=== PATIENT | female | born 1950 | race Caucasian/White ===

== ENCOUNTER 2017-05-28 08:26 | Inpatient (IN) ==
--- OUTSIDE RECORDS SUMMARY | 2017-05-28 08:53 | External Medical Summary | Summary of Care ---
:1950 Author Name Mike Ha M.D. Address [address], [place] [id number] Care Team Providers Name Role Phone Leidy Driscoll M.D. Unavailable Unavailable Outside, Physician Primary Care Provider Unavailable Functional Status Functional Status Health Issues Name Dates Details Functional status health issues are not documented Status: Cognitive Status Health Issues Name Dates Details Cognitive status health issues are not documented Status: Problems Name Dates Details Dizziness (780.4, R42) Status: Active Hearing loss (389.9, H91.90) Status: Active Sensorineural hearing loss (389.10, H90.5) Status: Active Disequilibrium (780.4, R42) Status: Active Imbalance (781.2, R26.89) Status: Active Medications Name Dates Details Meclizine HCl - 25 MG Oral Tablet Refills: 0 Hever Driscoll M.D. Started 18-Dec-2014 ActiveVenlafaxine HCl - 25 MG Oral Tablet Refills: 0 Hever Driscoll M.D. Started 18-Dec-2014 ActiveClonazePAM 1 MG Oral Tablet Refills: 0 Hever Driscoll M.D. Started 18-Dec-2014 Active Allergies and Adverse Reactions Name Dates Details No Known Drug Allergies Status: Active Procedures Procedure Dates Details History of Tonsillectomy History of Hysterectomy ERYTHROCYTE SED RATE 7800 Ordered:18-Dec-2014 RPR 2005 Ordered:18-Dec-2014 ANCA Panel [id number] Ordered:18-Dec-2014 Immunization Name Dates Details Immunizations not documented Social History Name Dates Details Smoking StatusFormer smoker Vital Signs Date Test Result Details 18-Dec-2014 09:44 BP Systolic 148 mm[Hg] Status: BP Diastolic 87 mm[Hg] Status: Heart Rate 83 /min Status: Results Date Description Value Details Results not documented Plan of Care Planned Observations Name Dates Details Planned Goals not documented Goal Planned Encounters Appointment; Provider: Mike Ha On 10:15 Appointment; Provider: Mario Myers On 05-Jun-2009 11:30 Instructions Instructions not documented Encounters Appointment; Mike Ha On 18-Dec-2014 Encounter Diagnosis: Problem not documented 09:15
--- OUTSIDE RECORDS SUMMARY | 2017-05-28 08:53 | External Medical Summary | Continuity of Care Document ---
:1950 Author Organization [facility] Care Team Providers Name Role Phone WILLIAM URBAN Admitting Physician WILLIAM URBAN Attending Physician Hospital Admission Diagnosis Code Admission Diagnosis Date OTHER SPECIFIED NONTOXIC GOITER Social History Element Code Description Smoking Start Date End Date Description Status Code System Smoking Status [id number] Never smoker SNOMED-CT Problems Code Code System Problem Name Start Date End Date Status WEAKNESS 02/05/2014 Active 322258465 SNOMED-CT Transient cerebral Unknown Active ischemia 36831799 SNOMED-CT Hypertensive disorder Unknown Active 097451697 SNOMED-CT Vertigo Unknown Active 156162766 SNOMED-CT Dizziness Unknown Active 36090570 SNOMED-CT Dysphagia Unknown Active 724145912 SNOMED-CT Mitral valve prolapse Unknown Active 84419402 SNOMED-CT Hyperlipidemia Unknown Active Medications RxNorm Medication Dose Route Instructions Indications Start End Status Date Date Atenolol 25 MG 25 Oral orally every Active Oral Tablet milligram day 784905 Escitalopram 10 Oral orally every Active 10 MG Oral milligram day Tablet Lorazepam 1 MG 1 milligram Oral orally 3 times Active Oral Tablet per day 568773 venlafaxine 75 75 Oral orally 3 times Active MG Oral Tablet milligram per day Allergies No Known Allergies Results Radiology Results Order: USTHYRD US ThyroidExam Completion Date :10/01/2015 14:58INDICATION: enlarged thyroid COMPARISON: none.US Thyroid: Each thyroid lobe measures approximately 5-5.5 cm long.Irregular echogenicity suggests thyroiditis. This gives the appearance ofmultiple 5-20 mm nodules. The appearance does not suggest cancer.IMPRESSION: Mild goiter and probable thyroiditis.Released By HANANE CAO MDDate: 10/01/2015 15:44 Vital Signs No data in the system Plan of Care No data in the system Procedures No data in the system Encounters Date Code Diagnosis Status (ICD10) - E048 OTHER SPECIFIED NONTOXIC GOITER Active Immunizations Vaccine Code Code System Vaccine Name Date Status 88 CVX influenza 05/03/2013 Completed virus vaccine, NOS Functional Status No data in the system Hospital Discharge Instructions No data in the system
--- OUTSIDE RECORDS SUMMARY | 2017-05-28 08:53 | External Medical Summary | Continuity of Care Document ---
:1950 Author Organization [facility] Care Team Providers Name Role Phone LEONILA WATTERS Admitting Physician LEONILA WATTERS Attending Physician Hospital Admission Diagnosis No data in the System Social History Element Code Description Smoking Start Date End Date Description Status Code System Smoking Status 548812519 Never smoker SNOMED-CT Problems Code Code System Problem Name Start Date End Date Status WEAKNESS 02/05/2014 Active 647935222 SNOMED-CT Transient cerebral Unknown Active ischemia 06639835 SNOMED-CT Hypertensive disorder Unknown Active 459586335 SNOMED-CT Vertigo Unknown Active 263393575 SNOMED-CT Dizziness Unknown Active 37567074 SNOMED-CT Dysphagia Unknown Active 747755197 SNOMED-CT Mitral valve prolapse Unknown Active 72651011 SNOMED-CT Hyperlipidemia Unknown Active Medications RxNorm Medication Dose Route Instructions Indications Start End Status Date Date Atenolol 25 MG 25 Oral orally every Active Oral Tablet milligram day 979063 Escitalopram 10 Oral orally every Active 10 MG Oral milligram day Tablet Lorazepam 1 MG 1 milligram Oral orally 3 times Active Oral Tablet per day 326167 venlafaxine 75 75 Oral orally 3 times Active MG Oral Tablet milligram per day Allergies No Known Allergies Results Laboratory Results Order: Urinalysis With Microscopic ExamLegend: D=Delta, H=High, L=Low, HH=Critical High, LL=Critical Low, AA= Critical Alpha-Numeric, C=Corrected, A=Abnormal LOINC Test Result Flag Range Units Date 57786 Color Ur Light yellow 6 14:00 66783-9 Clarity Clear Ur 6 14:00 2966-0 Sp Gr <=1.005 1.005-1.030 24h Ur 6 14:00 2756-5 pH Ur 6.0 5.0-7.0 6 14:00 19529-2 Large * NEGATIVE Leukocyte esterase 6 14:00 Ur-aCnc 51707-8 Nitrite Negative NEGATIVE Ur Ql Strip.auto 6 14:00 26337-6 Prot Negative NEGATIVE Tiss-mCnt 6 14:00 2349-9 Glucose Negative NEGATIVE Ur Ql 6 14:00 69280-3 MEK Negative NEGATIVE Ur-mCnc 6 14:00 1977-8 Bilirub Negative NEGATIVE Ur Ql 6 14:00 933-2 Bld Prod Negative NEGATIVE Typ BPU 6 14:00 45612-0 0.2 <=1.0 Urobilinogen Ur Ql 6 14:00 1WBC_UM 10-15 * 0-5 /HPF 6 14:00 5787-7 1Epi 5-10 * 0-2 /HPF Cells #/area UrnS 6 14:00 HPF 64019-6 Few /HPF 1Bacteria UrnS Ql 6 14:00 Micro 71044-9 1C trach Y UrnS Ql Cult 6 14:00 Performing [facility] Footnotes[facility] [id number] - [address] [place], [place] [address]PUL DANISH YOST Vital Signs No data in the system Plan of Care No data in the system Procedures No data in the system Encounters No data in the system Immunizations Vaccine Code Code System Vaccine Name Date Status 88 CVX influenza 05/03/2013 Completed virus vaccine, NOS Functional Status No data in the system Hospital Discharge Instructions No data in the system
--- OUTSIDE RECORDS SUMMARY | 2017-05-28 08:53 | External Medical Summary | Continuity of Care Document ---
:1950 Author Organization [facility] Care Team Providers Name Role Phone LEONILA WATTERS Admitting Physician LEONILA WATTERS Attending Physician Hospital Admission Diagnosis Code Admission Diagnosis Date [id number] Increased frequency of urination Social History Element Code Description Smoking Start Date End Date Description Status Code System Smoking Status 765206294 Never smoker SNOMED-CT Problems Code Code System Problem Name Start Date End Date Status WEAKNESS 02/05/2014 Active 998995861 SNOMED-CT Transient cerebral Unknown Active ischemia 28347149 SNOMED-CT Hypertensive disorder Unknown Active 574543090 SNOMED-CT Vertigo Unknown Active 944886942 SNOMED-CT Dizziness Unknown Active 23082004 SNOMED-CT Dysphagia Unknown Active 882823998 SNOMED-CT Mitral valve prolapse Unknown Active 78826750 SNOMED-CT Hyperlipidemia Unknown Active Medications RxNorm Medication Dose Route Instructions Indications Start End Status Date Date Atenolol 25 MG 25 Oral orally every Active Oral Tablet milligram day 866932 Escitalopram 10 Oral orally every Active 10 MG Oral milligram day Tablet Lorazepam 1 MG 1 milligram Oral orally 3 times Active Oral Tablet per day 267578 venlafaxine 75 75 Oral orally 3 times Active MG Oral Tablet milligram per day Allergies No Known Allergies Results Laboratory Results Order: Urinalysis With Microscopic ExamLegend: D=Delta, H=High, L=Low, HH=Critical High, LL=Critical Low, AA= Critical Alpha-Numeric, C=Corrected, A=Abnormal LOINC Test Result Flag Range Units Date 5778 Color Ur Light yellow 6 14:00 58808-2 Clarity Clear Ur 6 14:00 2966-0 Sp Gr <=1.005 1.005-1.030 24h Ur 6 14:00 2756-5 pH Ur 6.0 5.0-7.0 6 14:00 08666-2 Large * NEGATIVE Leukocyte esterase 6 14:00 Ur-aCnc 03103-2 Nitrite Negative NEGATIVE Ur Ql Strip.auto 6 14:00 44713-3 Prot Negative NEGATIVE Tiss-mCnt 6 14:00 2349-9 Glucose Negative NEGATIVE Ur Ql 6 14:00 63353-1 MEK Negative NEGATIVE Ur-mCnc 6 14:00 1977-8 Bilirub Negative NEGATIVE Ur Ql 6 14:00 933-2 Bld Prod Negative NEGATIVE Typ BPU 6 14:00 45010-0 0.2 <=1.0 Urobilinogen Ur Ql 6 14:00 1WBC_UM 10-15 * 0-5 /HPF 6 14:00 5787-7 1Epi 5-10 * 0-2 /HPF Cells #/area UrnS 6 14:00 HPF 14384-9 Few /HPF 1Bacteria UrnS Ql 6 14:00 Micro 77434-5 1C trach Y UrnS Ql Cult 6 14:00 Performing Lab Footnotes:[facility] [id number] - [address] [place] [address]KVLKIN YOST Microbiology Results w SusceptibilitiesOrder: Culture UrineCulture Observations:1Final: Three or more colony types observed, contamination possible [id number]; ID workup upon request within 24 hoursPerforming Lab Footnotes:[facility] [id number] - [address] [place] [address] KIN - DANISH YOST Vital Signs No data in the system Plan of Care No data in the system Procedures No data in the system Encounters Date Code Diagnosis Status (ICD10) - R350 FREQUENCY OF MICTURITION Active Immunizations Vaccine Code Code System Vaccine Name Date Status 88 CVX influenza 05/03/2013 Completed virus vaccine, NOS Functional Status No data in the system Hospital Discharge Instructions No data in the system
--- OUTSIDE RECORDS SUMMARY | 2017-05-28 08:53 | External Medical Summary | Continuity of Care Document ---
:1950 Author Organization [facility] Care Team Providers Name Role Phone SELWYN BHATT Admitting Physician SELWYN BHATT Attending Physician Hospital Admission Diagnosis Code Admission Diagnosis Date OTHER MICROSCOPIC HEMATURIA Social History Element Code Description Smoking Start Date End Date Description Status Code System Smoking Status 064089898 Unknown if ever SNOMED-CT smoked Problems Code Code System Problem Name Start Date End Date Status WEAKNESS 02/05/2014 Active 795668879 SNOMED-CT Transient cerebral Unknown Active ischemia 56045626 SNOMED-CT Hypertensive disorder Unknown Active 804664493 SNOMED-CT Vertigo Unknown Active 559047565 SNOMED-CT Dizziness Unknown Active 07963548 SNOMED-CT Dysphagia Unknown Active 358919683 SNOMED-CT Mitral valve prolapse Unknown Active 35113758 SNOMED-CT Hyperlipidemia Unknown Active Medications RxNorm Medication Dose Route Instructions Indications Start End Status Date Date Atenolol 25 MG 25 Oral orally every Active Oral Tablet milligram day 399123 Escitalopram 10 Oral orally every Active 10 MG Oral milligram day Tablet 946765 Lorazepam 1 MG 1 milligram Oral orally 3 times Active Oral Tablet per day 188635 venlafaxine 75 75 Oral orally 3 times Active MG Oral Tablet milligram per day Allergies No Known Allergies Results Laboratory Results Order: Urine MicroscopicLegend: D=Delta, H= High, L=Low, HH=Critical High, LL=Critical Low, AA=Critical Alpha-Numeric, C= Corrected, A=Abnormal LOINC Test Result Flag Range Units Date 2-5 * 0-5 /HPF 12/12/2016 1WBC_ 13:45 5787-7 1Epi 0-5 * 0-2 /HPF 12/12/2016 Cells #/area 13:45 UrnS HPF 17409-8 Moderate Amount * NONE PRESENT /HPF 12/12/2016 1Mucous 13:45 Threads #/area UrnS HPF 21426-9 1C N 12/12/2016 trach UrnS Ql 13:45 Cult Test Comment: Ordered per Physician order Performing Lab Footnotes:[facility] - [id number] - [address] [facility] [place] [facility] [place] [address] - [place] [address] [place] Order: UrinalysisLegend: D=Delta, H=High, L=Low, HH=Critical High, LL=Critical Low, AA=Critical Alpha-Numeric, C=Corrected, A=Abnormal LOINC Test Result Flag Range Units Date 5778-6 Yellow 12/12/2016 1Color Ur 13:05 45151-2 Clear 12/12/2016 1Clarity Ur 13:05 2966-0 1Sp 1.020 1.005-1.030 12/12/2016 Gr 24h Ur 13:05 2756-5 1pH 7.0 5.0-7.0 12/12/2016 Ur 13:05 74462-0 Small * NEGATIVE 12/12/2016 1Leukocyte 13:05 esterase Ur-aCnc 70852-7 Negative NEGATIVE 12/12/2016 1Nitrite Ur Ql 13:05 Strip.auto 50524-3 Negative NEGATIVE 12/12/2016 1Prot 13:05 Tiss-mCnt 2349-9 Negative NEGATIVE 12/12/2016 1Glucose Ur Ql 13:05 27410-8 1MEK Negative NEGATIVE 12/12/2016 Ur-mCnc 13:05 1977-8 Negative NEGATIVE 12/12/2016 1Bilirub Ur Ql 13:05 02250-9 0.2 <=1.0 12/12/2016 1Urobilinogen 13:05 Ur Ql 933-2 1Bld Trace-intact * NEGATIVE 12/12/2016 Prod Typ BPU 13:05 82304-2 N 12/12/2016 1Mgeniaro Rome 13:05 Performing Lab Footnotes:[address] [place] [address] - [id number] - [address] [place] [address] RASHAD Microbiology Results w SusceptibilitiesOrder: Culture UrineCulture Observations:1Final: Three or more colony types observed, probable contamination; [id number].Performing Lab Footnotes:1[facility] - [id number] - [address] [place] [address] RASHAD__ ____ Vital Signs No data in the system Plan of Care No data in the system Procedures No data in the system Encounters Date Code Diagnosis Status (ICD10) - R3129 OTHER MICROSCOPIC HEMATURIA Active Immunizations Vaccine Code Code System Vaccine Name Date Status 88 CVX influenza 05/03/2013 Completed virus vaccine, NOS Functional Status No data in the system Hospital Discharge Instructions No data in the system
--- OUTSIDE RECORDS SUMMARY | 2017-05-28 08:53 | External Medical Summary | Summary of Care ---
:1950 Author Name Lucia Monk, Luis Martin Address [address], [place] [id number] Care Team Providers Name Role Phone Ofelia Keller Unavailable Unavailable Leidy Driscoll M.D. Unavailable Unavailable Lucia Monk, Luis Martin Unavailable Unavailable Ofoma, Andi Unavailable Unavailable Unavailable Unavailable Unavailable Functional Status Functional Status Health Issues Name Dates Details Functional status health issues are not documented Status: Cognitive Status Health Issues Name Dates Details Cognitive status health issues are not documented Status: Problems Name Dates Details Dizziness (780.4, R42) Status: Active Hearing loss (389.9, H91.90) Status: Active Sensorineural hearing loss (389.10, H90.5) Status: Active Imbalance (781.2, R26.89) Status: Active High cholesterol (272.0, E78.0) Status: Active Disequilibrium (780.4, R42) Status: Active Thyroid mass (246.9, E07.9) Status: Active Obstructive sleep apnea (327.23, G47.33) Status: Active Medications Name Dates Details Meclizine HCl - 25 MG Oral Tablet Refills: 0 Hever Driscoll M.D. Start 18-Dec-2014 Active Venlafaxine HCl - 25 MG Oral Tablet Refills: 0 Hever Driscoll M.D. Start 18-Dec-2014 Active ClonazePAM 1 MG Oral Tablet Refills: 0 Hever Driscoll M.D. Start 18-Dec-2014 Active OLANZapine 10 MG Oral Tablet Refills: 0 Mario Myers M.D. Start 10-Sep-2015 Active Mona Allergy 180 MG Oral Tablet Refills: 0 Mario Myers M.D. Start 10-Sep-2015 Active Caltrate 600+D 600-400 MG-UNIT CHEW Refills: 0 Mario Myers M.D. Start 10-Sep-2015 Active Supplies AutoCPAP 8-12 cm H2O, Permanent use, G47.33, Heated humidity, [id number], mask , headgear, filters, heated tubing, water chamber, chinstrap Quantity: 1 Refills: 0 Senthil P.A., Ofelia Start 10-Sep-2015 Active Crestor 20 MG Oral Tablet Refills: 0 Lucia Castillo.[place]., Mario O Start 02-Oct-2015 Active Rhodiola 300 MG Oral Capsule Refills: 0 Lucia Castillo.D., Mario O Start 02-Oct-2015 Active MetFORMIN HCl - 500 MG Oral Tablet Refills: 0 Lucia Castillo.D., Mario O Start 02-Oct-2015 Active Celecoxib 200 MG Oral Capsule Refills: 0 Lucia M.D., Mario O Start 02-Oct-2015 Active Supplies AutoCPAP 8-12 cm H2O, Permanent use, G47.33, Heated humidity, [id number], mask , headgear, filters, heated tubing, water chamber, chinstrap Quantity: 1 Refills: 0 Senthil P.A., Ofelia Start Active Allergies and Adverse Reactions Name Dates Details No Known Drug Allergies (Allergy) Status: Active Past Medical History Name Dates Details History of stroke (V12.54, Z86.73) Status: Resolved Procedures Procedure Dates Details History of Tonsillectomy History of Hysterectomy History of Gallbladder Surgery Procedures not documented Immunization Name Dates Details Immunizations not documented Social History Name Dates Details - Status: Smoking Status Name Dates Details Former smoker Vital Signs Date Test Result Details 08-Apr-2016 13:58 BP Systolic 127 mm[Hg] Status: Comments: Location: ; Position: BP Diastolic 86 mm[Hg] Status: Comments: Location: ; Position: Heart Rate 100 /min Status: Comments: Location: ; Height 62 in Status: Weight 185 lb Status: Physical Findings 98 Status: Comments: O2 Saturation Body Mass Index Calculated 33.84 kg/m2 Status: Body Surface Area Calculated 1.85 m2 Status: Results Date Description Value Details Results not documented Plan of Care Name Dates Details Planned Observations Planned Goals not documented Planned Encounters Appointment; Provider: Anthony Venegas On 19-Aug-2016 13:00 Instructions Name Dates Details Instructions not documented Encounters Appointment; Mario Myers M.D. On Encounter Diagnosis: Problem not documented 14:15 Appointment; Mario Myers M.D. On Encounter Diagnosis: Problem not documented 12:45 Appointment; Mario Myers M.D. On 29-Nov-2015 Encounter Diagnosis: Problem not documented 11:45 Appointment; Mike Ha M.D. On 26-Oct-2015 Encounter Diagnosis: Problem not documented 11:15 Appointment; Mario Myers M.D. On 02-Oct-2015 Encounter Diagnosis: Problem not documented 14:45 Appointment; Mike Ha M.D. On 14-Sep-2015 Encounter Diagnosis: Problem not documented 13:00 Appointment; Mario Myers M.D. On 10-Sep-2015 Encounter Diagnosis: Problem not documented 11:00 Appointment; Mike Ha M.D. On Encounter Diagnosis: Problem not documented 10:15 Appointment; Mike Ha M.D. On 18-Dec-2014 Encounter Diagnosis: Problem not documented 09:15
--- OUTSIDE RECORDS SUMMARY | 2017-05-28 08:53 | External Medical Summary | Summary of Care ---
:1950 Author Name Luis Myers M.D. Address Unavailable Unavailable , Care Team Providers Name Role Phone Ofelia Keller Unavailable Unavailable Leidy Driscoll M.D. Unavailable Unavailable Lucia Monk, Luis Martin Unavailable Unavailable Ofoma, Andi Primary Care Provider Unavailable Unavailable Unavailable Unavailable Functional Status Functional [...] Refills: 0 Hever Driscoll M.D. Started 18-Dec-2014 ActiveOLANZapine 10 MG Oral Tablet Refills: 0 Mario Myers M.D. Started 10-Sep-2015 ActiveAllegra Allergy 180 MG Oral Tablet Refills: 0 Mario Myers M.D. Started 10-Sep-2015 ActiveCaltrate 600+D 600-400 MG-UNIT Oral Tablet Chewable Refills: 0 Mario Myers M.D. Started 10-Sep-2015 ActiveSupplies AutoCPAP 8-12 cm H2O, Permanent use, G47.33, Heated humidity, [id number], mask , headgear, filters, heated tubing, water chamber, chinstrap Quantity: 1 Refills: 0 Ofelia Ndiaye Started 10-Sep-2015 ActiveCrestor 20 MG Oral Tablet Refills: 0 Mario Myers M.D. Started 02-Oct-2015 ActiveRhodiola 300 MG Oral Capsule Refills: 0 Mario Myers M.D. Started 02-Oct-2015 ActiveMetFORMIN HCl - 500 MG Oral Tablet Refills: 0 Mario Myers M.D. Started 02-Oct-2015 ActiveCelecoxib 200 MG Oral Capsule Refills: 0 Mario Myers M.D. Started 02-Oct-2015 Active Allergies and Adverse Reactions Name Dates Details No Known Drug Allergies Status: Active Past Medical History Name Dates Details History of stroke (V12.54, Z86.73) Status: Resolved Procedures Procedure Dates Details History of Tonsillectomy History of Hysterectomy History of Gallbladder Surgery Procedures not documented Immunization Name Dates Details Immunizations not documented Social History Name Dates Details Smoking StatusFormer smoker Vital Signs Date Test Result Details 14:42 BP Systolic 134 mm[Hg] Status: BP Diastolic 86 mm[Hg] Status: Heart Rate 93 /min Status: Height 62 in Status: Weight 187 lb Status: O2 SAT 97 % Status: Body Mass Index Calculated 34.2 kg/m2 Status: Body Surface Area Calculated 1.86 m2 Status: 14:37 BP Systolic 134 mm[Hg] Status: BP Diastolic 86 mm[Hg] Status: Heart Rate 93 /min Status: Height 62 in Status: Weight 187 lb Status: O2 SAT 97 % Status: Body Mass Index Calculated 34.2 kg/m2 Status: Body Surface Area Calculated 1.86 m2 Status: Results Date Description Value Details Results not documented Plan of Care Planned Observations Name Dates Details Planned Goals not documented Goal Planned Encounters Appointment; Provider: Mario Myers On 05-Jun-2009 11:30 Instructions Instructions not documented Encounters Appointment; Mario Myers On Encounter Diagnosis: Problem not documented 14:15 Appointment; Mario Myers On Encounter Diagnosis: Problem not documented 12:45 Appointment; Mario Myers On 29-Nov-2015 Encounter Diagnosis: Problem not documented 11:45 Appointment; Mike Ha On 26-Oct-2015 Encounter Diagnosis: Problem not documented 11:15 Appointment; Mario Myers On 02-Oct-2015 Encounter Diagnosis: Problem not documented 14:45 Appointment; Mike Ha On 14-Sep-2015 Encounter Diagnosis: Problem not documented 13:00 Appointment; Mario Myers On 10-Sep-2015 Encounter Diagnosis: Problem not documented 11:00 Appointment; Mike Ha On Encounter Diagnosis: Problem not documented 10:15 Appointment; Mike Ha On 18-Dec-2014 Encounter Diagnosis: Problem not documented 09:15
[2017-05-28] MEDS ORDERED: SALINE FLUSH 10ml SYRINGE IVF PRN (08:54)
--- OUTSIDE RECORDS SUMMARY | 2017-05-28 08:54 | External Medical Summary | Continuity of Care Document ---
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 NONTOXIC GOITER 11/07/2015 LEONILA WATTERS P R35.0 FREQUENCY OF L. MICTURITION 11/07/2015 LEONILA WATTERS S R82.90 UNSPECIFIED L. 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 Visit Discharge Status Pt. Type Provider Facility Loc./Unit Complaint Date/Time [id number] 06/19/2015 06/19/2015 CLS Outpatien Papi, 13:15:26 23:59:59 t Reza Jonas [id number] 04/25/2014 04/25/2014 CLS Outpatien Lizzeth, 08:56:43 23:59:59 t Shirley Forbes [id number] 04/14/2014 04/14/2014 CLS Outpatien Jose David, 17:03:34 23:59:59 t Sukhdeep Wood [id number] 08/16/2015 08/16/2015 DIS Outpatien Ofoma Benjamin CRUZ [facility].IMG. 922 10:49:00 23:59:00 t [facility] [id number] 06/22/2015 06/22/2015 DIS Outpatien OfBenjamin ferreira MD [facility].IMG.CA 727 12:43:00 23:59:00 t [facility] [id number] 06/14/2015 06/14/2015 DIS Outpatien OfBenjamin ferreira MD SRH.G.CA 939 09:32:00 23:59:00 t [facility] [id number] 10/25/2015 10/25/2015 DIS Outpatien Lucia Sarabia [facility].SLEEP 780 22:45:00 23:59:00 jayna CRUZ [facility] [id number] 03/24/2017 ACT Unknown Iggy OLIVARES [place] [facility] GENER[facility] 12:20:00 [facility] [id number] 12/12/2016 ACT Unknown NOVA, specimen 15:03:00 SELWYN AYALA [id number] 10/29/2015 ACT Unknown DUONG, SPECIMEN 14:46:00 LEONILA Mott [id number] 10/01/2015 ACT Unknown RAJNI, 14:26:00 WILLIAM Hill [id number] 05/16/2015 ACT Unknown LAYNEJOSE [place] [facility] FOREIGN 16:38:00 CITLALI REINA [facility] [id number] 02/26/2015 ACT Unknown RAJNI, 13:13:00 WILLIAM Hill [id number] 01/30/2015 ACT Unknown RAJNI, 09:22:00 WILLIAM Hill [id number] 11/30/1732 Document 00:09:24 Registrat ion
--- OUTSIDE RECORDS SUMMARY | 2017-05-28 08:54 | External Medical Summary | Continuity of Care Document ---
:1950 Author Organization [facility] Care Team Providers Name Role Phone Iggy OLIVARES Admitting Physician Iggy OLIVARES Attending Physician Hospital Admission Diagnosis Code Admission Diagnosis Date [id number] Asthenia Social History Element Code Description Smoking Start Date End Date Description Status Code System Smoking Status [id number] Never smoker SNOMED-CT Problems Code Code System Problem Name Start Date End Date Status WEAKNESS 02/05/2014 Active 287342879 SNOMED-CT Transient cerebral Unknown Active ischemia 91219058 SNOMED-CT Hypertensive disorder Unknown Active 703479642 SNOMED-CT Vertigo Unknown Active 960829524 SNOMED-CT Dizziness Unknown Active 11174139 SNOMED-CT Dysphagia Unknown Active 615590032 SNOMED-CT Mitral valve prolapse Unknown Active 87999013 SNOMED-CT Hyperlipidemia Unknown Active Medications RxNorm Medication Dose Route Instructions Indications Start End Status Date Date Atenolol 25 MG 25 Oral orally every Active Oral Tablet milligram day 378778 Escitalopram 10 Oral orally every Active 10 MG Oral milligram day Tablet 826279 Lorazepam 1 MG 1 milligram Oral orally 3 times Active Oral Tablet per day 132527 venlafaxine 75 75 Oral orally 3 times Active MG Oral Tablet milligram per day Allergies No Known Allergies Results Laboratory Results Order: UrinalysisLegend: D=Delta, H=High, L =Low, HH=Critical High, LL=Critical Low, AA=Critical Alpha-Numeric, C=Corrected , A=Abnormal LOINC Test Result Flag Range Units Date 5778-6 Yellow 03/24/2017 1Color Ur 15:12 53464-4 Clear 03/24/2017 1Clarity Ur 15:12 2966-0 1Sp 1.020 1.005-1.030 03/24/2017 Gr 24h Ur 15:12 2756-5 1pH 6.0 5.0-7.0 03/24/2017 Ur 15:12 53102-7 Trace * NEGATIVE 03/24/2017 1Leukocyte 15:12 esterase Ur-aCnc 37803-2 Negative NEGATIVE 03/24/2017 1Nitrite Ur Ql 15:12 Strip.auto 30756-0 Negative NEGATIVE 03/24/2017 1Prot 15:12 Tiss-mCnt 2349-9 Negative NEGATIVE 03/24/2017 1Glucose Ur Ql 15:12 57247-8 1MEK 40 mg/dL * NEGATIVE 03/24/2017 Ur-mCnc 15:12 1977-8 Small * NEGATIVE 03/24/2017 1Bilirub Ur Ql 15:12 69293-1 0.2 <=1.0 03/24/2017 1Urobilinogen 15:12 Ur Ql 933-2 1Bld Trace-intact * NEGATIVE 03/24/2017 Prod Typ BPU 15:12 98486-3 N 03/24/2017 1Micro UrnS 15:12 Performing Lab Footnotes:[address] [place] [address] - [id number] [address] RASHAD Order: BNP B type Natiuretic PeptidesLegend: D=Delta, H=High, L=Low, HH= Critical High, LL=Critical Low, AA=Critical Alpha-Numeric, C=Corrected, A= Abnormal LOINC Test Result Flag Range Units Date 74719-1 11.0 0.0-100.0 pg/ml 03/24/2017 1BNP 13:20 SerPl-mCnc Performing Lab Footnotes:[address] [place] [address] - [id number] - [address] [place] [address] M RASHAD Order: CBC With Automated DifferentialLegend: D=Delta, H=High, L=Low, HH= Critical High, LL=Critical Low, AA=Critical Alpha-Numeric, C=Corrected, A= Abnormal LOINC Test Result Flag Range Units Date 6690-2 6.6 4.5-11.0 10^3/mm3 03/24/2017 1WBC # Bld 13:20 Auto 33472-5 5.75 H 4.00-5.20 10^6/mm3 03/24/2017 1Retics # 13:20 Auto 16625-7 16.2 H 12.0-16.0 g/dl 03/24/2017 1Hgb 13:20 BldV-mCnc 4544-3 48.0 H 36.0-46.0 % 03/24/2017 1Hct VFr Bld 13:20 Auto 787-2 83.5 82.0-100.0 10^6/mm3 03/24/2017 1MCV RBC Auto 13:20 785-6 28.2 27.0-34.0 pg 03/24/2017 1MCH RBC Qn 13:20 Auto 786-4 33.8 32.0-36.0 g/dl 03/24/2017 1MCHC RBC 13:20 Auto-mCnc 788-0 14.0 11.7-15.0 % 03/24/2017 1RDW RBC 13:20 Auto-Rto 777-3 178 150-450 10^3/mm3 03/24/2017 1Platelet # 13:20 Bld Auto 63093-4 10.7 H 7.4-10.4 03/24/2017 1PMV Bld 13:20 93954-0 75.9 H 40.0-74.0 % 03/24/2017 1Neutrophils 13:20 # CSF 18.0 14.0-46.0 % 03/24/2017 1LYMPH% 13:20 90929-3 4.7 4.0-13.0 % 03/24/2017 1CD43 Ag Tiss 13:20 Ql ImStn 711-2 0.9 0.0-4.0 % 03/24/2017 1Eosinophil # 13:20 Bld Auto 704-7 0.5 <=3.0 % 03/24/2017 1Basophils # 13:20 Bld Auto 751-8 5.0 1.8-7.8 03/24/2017 1Neutrophils 13:20 # Bld Auto 03619-9 1.2 0.7-4.5 03/24/2017 1Lymphocytes 13:20 # Bld 62334-6 0.3 0.1-1.0 03/24/2017 1CD43 Ag Tiss 13:20 Ql ImStn 711-2 0.06 <=4.00 03/24/2017 1Eosinophil # 13:20 Bld Auto 704-7 0.03 <=0.20 03/24/2017 1Basophils # 13:20 Bld Auto N 03/24/2017 1MANDIFF 13:20 72864-0 N 03/24/2017 1RBC Bld Auto 13:20 Performing Lab Footnotes:[address] [place] [address] - [id number] - [address] [place] [address] Order: Comprehensive Metabolic PanelLegend: D=Delta, H=High, L=Low, HH= Critical High, LL=Critical Low, AA=Critical Alpha-Numeric, C=Corrected, A= Abnormal LOINC Test Result Flag Range Units Date 2345-7 142 H 70-105 mg/dl 03/24/2017 1Glucose 13:20 SerPl-mCnc 3094-0 10 7-25 mg/dl 03/24/2017 1BUN 13:20 SerPl-mCnc 2160-0 0.8 0.6-1.3 mg/dl 03/24/2017 1Creat 13:20 SerPl-mCnc 21684-3 13 13-39 03/24/2017 1Creat/Urea 13:20 nit SerPl 2951-2 139 135-145 mmol/L 03/24/2017 1Sodium 13:20 SerPl-sCnc 92345-8 3.5 3.5-5.1 mmol/L 03/24/2017 1Potassium 13:20 SerPl-mCnc 2075-0 107 98-107 mmol/l 03/24/2017 1Chloride 13:20 SerPl-sCnc 2028-9 20 L 21-31 mmol/l 03/24/2017 1CO2 13:20 SerPl-sCnc 85910-3 16 9-16 mmol/L 03/24/2017 1Anion Gap 13:20 SerPl-sCnc 2692-2 289 277-298 mOsm/kg 03/24/2017 1Osmolality 13:20 SerPl 00322-4 10.2 H 8.2-10.0 mg/dl 03/24/2017 1Calcium 13:20 SerPl-mCnc 1742-6 35 7-52 IU/L 03/24/2017 1ALT 13:20 SerPl-cCnc 1920-8 29 13-39 IU/L 03/24/2017 1AST 13:20 SerPl-cCnc 1715-2 57 34-104 U/L 03/24/2017 1ACP 13:20 SerPl-cCnc 1975-2 1.1 H 0.3-1.0 mg/dl 03/24/2017 1Bilirub 13:20 SerPl-mCnc 2885-2 7.8 6.0-8.3 g/dL 03/24/2017 1Prot 13:20 SerPl-mCnc 1751-7 4.8 3.5-5.7 g/dl 03/24/2017 1Albumin 13:20 SerPl-mCnc 2336-6 3.0 2.3-3.2 g/dL 03/24/2017 1Globulin 13:20 Ser-mCnc 1759-0 1.6 1.2-2.0 03/24/2017 1Albumin/Sheela 13:20 b SerPl 67 60-116 GFRunits 03/24/2017 1GFR 13:20 [facility]forming [facility] [id number] - [address] [place] [address] - SULTANA M RASHAD Order: LactateLegend: D=Delta, H=High, L=Low, HH=Critical High, LL=Critical Low , AA=Critical Alpha-Numeric, C=Corrected, A=Abnormal LOINC Test Result Flag Range Units Date 80322-6 2.1 0.5-2.2 mmol/L 03/24/2017 1Lactate 13:20 [facility] Performing Lab Footnotes:[facility] [id number] [facility] [address] [place], [place] [address] [place] [address] RASHAD Radiology Results Order: CTHDWO CT Head or Brain WO/ ContrastExam Completion Date:03/24/2017 14:21INDICATION: Pt with 2 day hx confusionCT Head or Brain WO/Contrast: Technique: Axial images of the head wereobtained without IV contrast.Comparison: None.Findings: Intracranially, the examination is negative. There is no grosshemorrhage or mass effect. No evidence of an infarct. No evidence ofventricular obstruction. The calvarium is intact. The visualized paranasalsinuses and mastoid air cells areclear. Both orbits are grossly negative.Released By NOA SMITH, MDDate: 03/24/2017 15: 18 Vital Signs Vitals Value Date Body Temperature 96.8 F 03/24/2017 Respiratory Rate 21 03/24/2017 O2% BldC Oximetry 98 03/24/2017 BP Systolic 128 mmHg 03/24/2017 BP Diastolic 54 mmHg 03/24/2017 Height 64 in 03/24/2017 Weight Measured 154 lbs 03/24/2017 BSA (Body Surface Area) 1.20375 03/24/2017 BMI (Body Mass Index) 26.6 03/24/2017 Plan of Care No data in the system Procedures No data in the system Encounters Date Code Diagnosis Status (ICD10) - Z63007 OTH PSYCHOACTV USE UNS WITHDRWL Active UNS Immunizations Vaccine Code Code System Vaccine Name Date Status 88 CVX influenza 05/03/2013 Completed virus vaccine, NOS Functional Status No data in the system Hospital Discharge Instructions No data in the system
--- OUTSIDE RECORDS SUMMARY | 2017-05-28 08:54 | External Medical Summary | Continuity of Care Document ---
:1950 Author Organization [facility] Care Team Providers Name Role Phone SELWYN BHATT Admitting Physician SELWYN BHATT Attending Physician Hospital Admission Diagnosis No data in the System Social History Element Code Description Smoking Start Date End Date Description Status Code System Smoking Status [id number] Unknown if ever SNOMED-CT smoked Problems Code Code System Problem Name Start Date End Date Status WEAKNESS 02/05/2014 Active 704911568 SNOMED-CT Transient cerebral Unknown Active ischemia 10641952 SNOMED-CT Hypertensive disorder Unknown Active 272460507 SNOMED-CT Vertigo Unknown Active 935513441 SNOMED-CT Dizziness Unknown Active 46790443 SNOMED-CT Dysphagia Unknown Active 425818704 SNOMED-CT Mitral valve prolapse Unknown Active 41524271 SNOMED-CT Hyperlipidemia Unknown Active Medications RxNorm Medication Dose Route Instructions Indications Start End Status Date Date Atenolol 25 MG 25 Oral orally every Active Oral Tablet milligram day 755429 Escitalopram 10 Oral orally every Active 10 MG Oral milligram day Tablet 746285 Lorazepam 1 MG 1 milligram Oral orally 3 times Active Oral Tablet per day 828725 venlafaxine 75 75 Oral orally 3 times Active MG Oral Tablet milligram per day Allergies No Known Allergies Results Laboratory Results Order: Urine MicroscopicLegend: D=Delta, H= High, L=Low, HH=Critical High, LL=Critical Low, AA=Critical Alpha-Numeric, C= Corrected, A=Abnormal LOINC Test Result Flag Range Units Date 2-5 * 0-5 /HPF 12/12/2016 1WBC_UM 13:45 5787-7 1Epi 0-5 * 0-2 /HPF 12/12/2016 Cells #/area 13:45 UrnS HPF 17424-0 Moderate Amount * NONE PRESENT /HPF 12/12/2016 1Mucous 13:45 Threads #/area UrnS HPF 92250-2 1C N 12/12/2016 trach UrnS Ql 13:45 Cult Test Comment: Ordered per Physician order Performing Lab Footnotes:[facility] - [id number] - [address] [place] [address] - HAMMER M [place]B Order: UrinalysisLegend: D=Delta, H=High, L=Low, HH=Critical High, LL=Critical Low, AA=Critical Alpha-Numeric, C=Corrected, A=Abnormal LOINC Test Result Flag Range Units Date 5778-6 Yellow 12/12/2016 1Color Ur 13:05 40500-0 Clear 12/12/2016 1Clarity Ur 13:05 2966-0 1Sp 1.020 1.005-1.030 12/12/2016 Gr 24h Ur 13:05 2756-5 1pH 7.0 5.0-7.0 12/12/2016 Ur 13:05 23148-3 Small * NEGATIVE 12/12/2016 1Leukocyte 13:05 esterase Ur-aCnc 92852-2 Negative NEGATIVE 12/12/2016 1Nitrite Ur Ql 13:05 Strip.auto 25324-6 Negative NEGATIVE 12/12/2016 1Prot 13:05 Tiss-mCnt 2349-9 Negative NEGATIVE 12/12/2016 1Glucose Ur Ql 13:05 18554-2 1MEK Negative NEGATIVE 12/12/2016 Ur-mCnc 13:05 1977-8 Negative NEGATIVE 12/12/2016 1Bilirub Ur Ql 13:05 95688-0 0.2 <=1.0 12/12/2016 1Urobilinogen 13:05 Ur Ql 933-2 1Bld Trace-intact * NEGATIVE 12/12/2016 Prod Typ BPU 13:05 03776-1 N 12/12/2016 1Mcomfort Peter 13:05 Performing Lab Footnotes:[facility] - [id number] - [address] [place] [id number] [place] [address] RODNEY Vital Signs No data in the system [...]
--- OUTSIDE RECORDS SUMMARY | 2017-05-28 08:54 | External Medical Summary | Summary of Care ---
:1950 Author Name Mike Ha M.D. Address [address], [place] [id number] Care Team Providers Name Role Phone Americo Monk, Leidy Kathleen Unavailable Unavailable Outside, Physician Primary Care Provider Unavailable Functional Status Functional Status Health Issues Name Dates Details Functional status health issues are not documented Status: Cognitive Status Health Issues Name Dates Details Cognitive status health issues are not documented Status: Problems Name Dates Details Dizziness (780.4, R42) Status: Active Hearing loss (389.9, H91.90) Status: Active Medications Name Dates Details Meclizine [...] 7800 Ordered:18-Dec-2014 RPR 2005 Ordered:18-Dec-2014 ANCA Panel [id number] Ordered:18-Dec-2014 Immunization Name Dates Details Immunizations not [...]
--- OUTSIDE RECORDS SUMMARY | 2017-05-28 08:54 | External Medical Summary | Summary of Care ---
:1950 Author Name Mike Ha M.D. Address [address], [place] [address] Care Team Providers Name Role Phone Leidy [...] Status: Active Imbalance (781.2, R26.89) Status: Active Thyroid mass (246.9, E07.9) Status: Active Medications Name Dates Details Meclizine [...] Details History of Tonsillectomy History of Hysterectomy Procedures not documented Immunization Name Dates Details Immunizations not documented Social History Name Dates Details Smoking StatusFormer smoker Vital Signs Date Test Result Details No Known Vitals to report Results Date Description Value Details 18-Dec-2014 ERYTHROCYTE SED RATE 7800 12:28 ERYTHROCYTE SED RATE 10 mm/60 min. Range: 0-20 (Better) 20-Dec-2014 RPR 2004 15:14 RPR Non-Reactive Range: Non-Reactive (Better) 21-Dec-2014 ANCA Panel [id number] Comments: Testing performed at: [] [address], [address], Phone: , Optimization Consultant: Kale Abbott MD 14:56 ANTIMYELOPEROXIDASE (MPO) ABS <9.0 U/mL Range: 0.0-9.0 (Better) ANTIPROTEINASE 3 (DC-3) ABS <3.5 U/mL Range: 0.0-3.5 (Better) CYTOPLASMIC (C-ANCA) <1:20 Range: Neg:<1:20 titer (Better) PERINUCLEAR (P-ANCA) <1:20 Range: Neg:<1:20 titer (Better) Comments: The presence of positive fluorescence exhibiting P-ANCA orC-ANCA patterns alone is not specific for the diagnosis ofWegener's Granulomatosis (WG) or microscopic polyangiitis.Decisions about treatment sh ould not be based solely onANCA IFA results. The International ANCA Group Consensusrecommends follow up testing of positive sera with both DC-3 and MPO-ANCA enzyme immunoassays. As many as 5% serumsamp les are positive only by EIA. Ref. AM J Clin [id number];111:507-513.----- ATYPICAL PANCA <1:20 Range: Neg:<1:20 titer (Better) Comments: The atypical pANCA pattern has been observed in asignificant percentage of patients with ulcerative colitis,primary sclerosing cholangitis and autoimmune hepatitis.----- Plan of Care Planned Observations Name Dates Details Planned Goals not documented Goal Planned Encounters Appointment; Provider: Mario Myers On 05-Jun-2009 11:30 Instructions Instructions not documented Encounters Appointment; Mike Ha On Encounter Diagnosis: Problem not documented 10:15 Appointment; Mike Ha On 18-Dec-2014 Encounter Diagnosis: Problem not documented 09:15
--- OUTSIDE RECORDS SUMMARY | 2017-05-28 08:54 | External Medical Summary | Summary of Care ---
:1950 Author Name Ofelia Keller Address [address] [place] [address] Care Team Providers Name Role Phone Ofelia Keller Unavailable Unavailable Americo Monk, Leidy Kathleen Unavailable Unavailable Lucia Monk, Luis Martin Unavailable [...] cm H2O, Permanent use, G47.33, Heated humidity, [id number], mask , headgear, filters, heated tubing, water [...] smoker Vital Signs Date Test Result Details 02-Oct-2015 14:47 BP Systolic 123 mm[Hg] Status: BP Diastolic 86 mm[Hg] Status: Heart Rate 92 /min Status: Weight 188 lb Status: O2 SAT 98 % Status: Body Mass Index Calculated 34.39 kg/m2 Status: Body Surface Area Calculated 1.86 m2 Status: 10-Sep-2015 11:00 BP Systolic 139 mm[Hg] Status: BP Diastolic 94 mm[Hg] Status: Heart Rate 90 /min Status: Height 62 in Status: Weight 198 lb Status: O2 SAT 94 % Status: Body Mass Index Calculated 36.21 kg/m2 Status: Body Surface Area Calculated 1.9 m2 Status: Results Date Description Value Details Results not documented Plan of Care Planned Observations Name Dates Details Planned Goals not documented Goal Planned Encounters Appointment; Provider: Mike Ha On 26-Oct-2015 11:15 Appointment; Provider: Mario Myers On 05-Jun-2009 11:30 Instructions Instructions not documented Encounters Appointment; Mario Myers On 02-Oct-2015 Encounter Diagnosis: Problem not documented 14:45 Appointment; Mike Ha On 14-Sep-2015 Encounter Diagnosis: Problem not documented 13:00 Appointment; Mario Myers On 10-Sep-2015 Encounter Diagnosis: Problem not documented 11:00 Appointment; Mike Ha On Encounter Diagnosis: Problem not documented 10:15 Appointment; Mike Ha On 18-Dec-2014 Encounter Diagnosis: Problem not documented 09:15
--- OUTSIDE RECORDS SUMMARY | 2017-05-28 08:54 | External Medical Summary | Continuity of Care Document ---
:1950 Author Organization [facility] Care Team Providers Name Role Phone Iggy OLIVARES Admitting Physician Iggy OLIVARES Attending Physician Hospital Admission Diagnosis Code Admission Diagnosis Date [id number] [place] Social History Element Code Description Smoking Start Date End Date Description Status Code System Smoking Status [id number] Never smoker SNOMED-CT Problems Code Code System Problem Name Start Date End Date Status WEAKNESS 02/05/2014 Active 719317581 SNOMED-CT Transient cerebral Unknown Active ischemia 88174851 SNOMED-CT Hypertensive disorder Unknown Active 571562150 SNOMED-CT Vertigo Unknown Active 887110314 SNOMED-CT Dizziness Unknown Active 53415597 SNOMED-CT Dysphagia Unknown Active 603370777 SNOMED-CT Mitral valve prolapse Unknown Active 56863931 SNOMED-CT Hyperlipidemia Unknown Active Medications RxNorm Medication Dose Route Instructions Indications Start End Status Date Date Atenolol 25 MG 25 Oral orally every Active Oral Tablet milligram day 685089 Escitalopram 10 Oral orally every Active 10 MG Oral milligram day Tablet 883548 Lorazepam 1 MG 1 milligram Oral orally 3 times Active Oral Tablet per day 828877 venlafaxine 75 75 Oral orally 3 times Active MG Oral Tablet milligram per day Allergies No Known Allergies Results Laboratory Results Order: UrinalysisLegend: D=Delta, H=High, L =Low, HH=Critical High, LL=Critical Low, AA=Critical Alpha-Numeric, C=Corrected , A=Abnormal LOINC Test Result Flag Range Units Date 5778-6 Yellow 03/24/2017 1Color Ur 15:12 64724-2 Clear 03/24/2017 1Clarity Ur 15:12 2966-0 1Sp 1.020 1.005-1.030 03/24/2017 Gr 24h Ur 15:12 2756-5 1pH 6.0 5.0-7.0 03/24/2017 Ur 15:12 63366-3 Trace * NEGATIVE 03/24/2017 1Leukocyte 15:12 esterase Ur-aCnc 29198-8 Negative NEGATIVE 03/24/2017 1Nitrite Ur Ql 15:12 Strip.auto 73469-0 Negative NEGATIVE 03/24/2017 1Prot 15:12 Tiss-mCnt 2349-9 Negative NEGATIVE 03/24/2017 1Glucose Ur Ql 15:12 02279-1 1MEK 40 mg/dL * NEGATIVE 03/24/2017 Ur-mCnc 15:12 1977-8 Small * NEGATIVE 03/24/2017 1Bilirub Ur Ql 15:12 74023-7 0.2 <=1.0 03/24/2017 1Urobilinogen 15:12 Ur Ql 933-2 1Bld Trace-intact * NEGATIVE 03/24/2017 Prod Typ BPU 15:12 81616-5 N 03/24/2017 1Micro UrnS 15:12 Performing Lab Footnotes:[address] [place] [address] - [id number] [address] RASHAD Order: BNP B type Natiuretic PeptidesLegend: D=Delta, H=High, L=Low, HH= Critical High, LL=Critical Low, AA=Critical Alpha-Numeric, C=Corrected, A= Abnormal LOINC Test Result Flag Range Units Date 11944-6 11.0 0.0-100.0 pg/ml 03/24/2017 1BNP 13:20 SerPl-mCnc Performing Lab Footnotes:[address] [place] [address] - [id number] - [address] [place] [address] M RASHAD Order: CBC With Automated DifferentialLegend: D=Delta, H=High, L=Low, HH= Critical High, LL=Critical Low, AA=Critical Alpha-Numeric, C=Corrected, A= Abnormal LOINC Test Result Flag Range Units Date 6690-2 6.6 4.5-11.0 10^3/mm3 03/24/2017 1WBC # Bld 13:20 Auto 92141-1 5.75 H 4.00-5.20 10^6/mm3 03/24/2017 1Retics # 13:20 Auto 43704-5 16.2 H 12.0-16.0 g/dl 03/24/2017 1Hgb 13:20 [...] 10^3/mm3 03/24/2017 1Platelet # 13:20 Bld Auto 95547-7 10.7 H 7.4-10.4 03/24/2017 1PMV Bld 13:20 64070-4 75.9 H 40.0-74.0 % 03/24/2017 1Neutrophils 13:20 # CSF 18.0 14.0-46.0 % 03/24/2017 1LYMPH% 13:20 04509-1 4.7 4.0-13.0 % 03/24/2017 1CD43 Ag Tiss 13:20 Ql ImStn 711-2 0.9 0.0-4.0 % 03/24/2017 1Eosinophil # 13:20 Bld Auto 704-7 0.5 <=3.0 % 03/24/2017 1Basophils # 13:20 Bld Auto 751-8 5.0 1.8-7.8 03/24/2017 1Neutrophils 13:20 # Bld Auto 52883-1 1.2 0.7-4.5 03/24/2017 1Lymphocytes 13:20 # Bld 43672-2 0.3 0.1-1.0 03/24/2017 1CD43 Ag Tiss 13:20 Ql ImStn 711-2 0.06 <=4.00 03/24/2017 1Eosinophil # 13:20 Bld Auto 704-7 0.03 <=0.20 03/24/2017 1Basophils # 13:20 Bld Auto N 03/24/2017 1MANDIFF 13:20 50801-8 N 03/24/2017 1RBC Bld Auto 13:20 Performing Lab Footnotes:[address] [place] [address] - [id number] - [address] [place] [address] Order: Comprehensive Metabolic PanelLegend: D=Delta, H=High, L=Low, HH= Critical High, LL=Critical Low, AA=Critical Alpha-Numeric, C=Corrected, A= Abnormal LOINC Test Result Flag Range Units Date 2345-7 142 H 70-105 mg/dl 03/24/2017 1Glucose 13:20 SerPl-mCnc 3094-0 10 7-25 mg/dl 03/24/2017 1BUN 13:20 SerPl-mCnc 2160-0 0.8 0.6-1.3 mg/dl 03/24/2017 1Creat 13:20 SerPl-mCnc 16457-9 13 13-39 03/24/2017 1Creat/Urea 13:20 nit SerPl 2951-2 139 135-145 mmol/L 03/24/2017 1Sodium 13:20 SerPl-sCnc 52198-3 3.5 3.5-5.1 mmol/L 03/24/2017 1Potassium 13:20 SerPl-mCnc 2075-0 107 98-107 mmol/l 03/24/2017 1Chloride 13:20 SerPl-sCnc 2028-9 20 L 21-31 mmol/l 03/24/2017 1CO2 13:20 SerPl-sCnc 03061-9 16 9-16 mmol/L 03/24/2017 1Anion Gap 13:20 SerPl-sCnc 2692-2 289 277-298 mOsm/kg 03/24/2017 1Osmolality 13:20 SerPl 58287-4 10.2 H 8.2-10.0 mg/dl 03/24/2017 1Calcium 13:20 [...] 60-116 GFRunits 03/24/2017 1GFR 13:20 [id number] [address] [place] [address] - SALUDA M RASHAD Order: LactateLegend: D=Delta, H=High, L=Low, HH=Critical High, LL=Critical Low , AA=Critical Alpha-Numeric, C=Corrected, A=Abnormal LOINC Test Result Flag Range Units Date 25945-4 2.1 0.5-2.2 mmol/L 03/24/2017 1Lactate 13:20 [facility] Performing [facility] Footnotes:[facility] [id number] [address] [place], [place] [id number] [place] [address] RASHAD Radiology Results Order: CTHDWO CT Head [...] 154 lbs 03/24/2017 BSA (Body Surface Area) 1.77302 03/24/2017 BMI (Body Mass Index) 26.6 03/24/2017 Plan of Care No data in the system Procedures No data in the system Encounters Date Code Diagnosis Status (ICD10) - P98437 OTH PSYCHOACTV USE UNS WITHDRWL Active UNS Immunizations Vaccine Code Code System Vaccine Name Date Status 88 CVX influenza 05/03/2013 Completed virus vaccine, NOS Functional Status No data in the system Hospital Discharge Instructions No data in the system
--- OUTSIDE RECORDS SUMMARY | 2017-05-28 08:54 | External Medical Summary | Summary of Care ---
:1950 Author Name Ofelia Keller Address [address] [place] [address] Care Team Providers Name Role Phone Ofelia [...] cm H2O, Permanent use, G47.33, Heated humidity, [id number], mask , headgear, filters, heated tubing, water [...]
--- OUTSIDE RECORDS SUMMARY | 2017-05-28 08:54 | External Medical Summary | Summary of Care ---
:1950 Author Name Mike Ha M.D. Address [address] [place], [place] [id number] Care Team Providers Name Role Phone Ofelia [...] Status: Active Disequilibrium (780.4, R42) Status: Active Obstructive sleep apnea (327.23, G47.33) Status: Active Thyroid mass (246.9, E07.9) Status: [...] cm H2O, Permanent use, G47.33, Heated humidity, [id number], mask , headgear, filters, heated tubing, water [...] not documented Encounters Appointment; Mike Ha On 26-Oct-2015 Encounter Diagnosis: [...]
--- OUTSIDE RECORDS SUMMARY | 2017-05-28 08:54 | External Medical Summary | Summary of Care ---
:1950 Author Name Mike Ha M.D. Address [address] [place], [place] [id number] Care Team Providers Name Role Phone Ofelia [...] Active High cholesterol (272.0, E78.0) Status: Active Obstructive sleep apnea (327.23, G47.33) Status: Active Disequilibrium (780.4, R42) Status: Active [...] Refills: 0 Mario Myers M.D. Started 10-Sep-2015 ActiveChromium Picolinate 200 MCG Oral Capsule Refills: 0 Mario Myers M.D. Started 10-Sep-2015 ActiveCaltrate 600+D 600-400 MG-UNIT Oral Tablet Chewable Refills: 0 Mario Myers M.D. Started 10-Sep-2015 ActiveSupplies AutoCPAP 8-12 cm H2O, Permanent use, G47.33, Heated humidity, [id number], mask , headgear, filters, heated tubing, water chamber, chinstrap Quantity: 1 Refills: 0 Ofelia Ndiaye Started 10-Sep-2015 Active Allergies and Adverse Reactions Name Dates [...] smoker Vital Signs Date Test Result Details 10-Sep-2015 11:00 BP Systolic 139 mm[Hg] Status: [...] 26-Oct-2015 11:15 Appointment; Provider: Mario Myers On 02-Oct-2015 14:45 Appointment; Provider: Mario Myers On 05-Jun-2009 11:30 Instructions Instructions not documented Encounters Appointment; Mike Ha On 14-Sep-2015 Encounter Diagnosis: Problem not documented 13:00 Appointment; Mario Myers On 10-Sep-2015 Encounter Diagnosis: Problem not documented 11:00 Appointment; Mike Ha On Encounter Diagnosis: Problem not documented 10:15 Appointment; Mike Ha On 18-Dec-2014 Encounter Diagnosis: Problem not documented 09:15
--- OUTSIDE RECORDS SUMMARY | 2017-05-28 08:54 | External Medical Summary | Summary of Care ---
:1950 Author Name Ofelia Keller Address [address] [place] [address] Care Team Providers Name Role Phone Ofelia Keller Unavailable Unavailable Americo Monk, Leidy Kathleen Unavailable Unavailable Lucia Monk, Luis Martin Unavailable Unavailable Outside, Physician Primary Care Provider Unavailable Unavailable Unavailable Unavailable [...] Active Thyroid mass (246.9, E07.9) Status: Active High cholesterol (272.0, E78.0) Status: [...] cm H2O, Permanent use, G47.33, Heated humidity, [id number], mask , headgear, filters, heated tubing, water chamber, chinstrap Quantity: 1 Refills: 0 Ofelia Ndiaye.Juancarlos Started 10-Sep-2015 Active Allergies and Adverse Reactions [...] Planned Encounters Appointment; Provider: Mario Myers On 20-Nov-2015 14:00 Appointment; Provider: Mike Ha On 14-Sep-2015 13:00 Appointment; Provider: Mario Myers On 05-Jun-2009 11:30 Instructions Instructions not documented Encounters Appointment; Mario Myers On 10-Sep-2015 Encounter Diagnosis: Problem not documented 11:00 Appointment; Mike Ha On Encounter Diagnosis: Problem not documented 10:15 Appointment; Mike aH On 18-Dec-2014 Encounter Diagnosis: Problem not documented 09:15
--- OUTSIDE RECORDS SUMMARY | 2017-05-28 08:54 | External Medical Summary | Continuity of Care Document ---
:1950 Author Organization [facility] Care Team Providers Name Role Phone WILLIAM URBAN Admitting Physician WILLIAM URBAN Attending Physician Hospital Admission Diagnosis No data in the System Social History Element Code Description Smoking Start Date End Date Description Status Code System Smoking Status [id number] Never smoker SNOMED-CT Problems Code Code System Problem Name Start Date End Date Status WEAKNESS 02/05/2014 Active 468710493 SNOMED-CT Transient cerebral Unknown Active ischemia 91609784 SNOMED-CT Hypertensive disorder Unknown Active 107304831 SNOMED-CT Vertigo Unknown Active 405091534 SNOMED-CT Dizziness Unknown Active 25027986 SNOMED-CT Dysphagia Unknown Active 482136258 SNOMED-CT Mitral valve prolapse Unknown Active 80177906 SNOMED-CT Hyperlipidemia Unknown Active Medications RxNorm Medication Dose Route Instructions Indications Start End Status Date Date Atenolol 25 MG 25 Oral orally every Active Oral Tablet milligram day 494245 Escitalopram 10 Oral orally every Active 10 MG Oral milligram day Tablet 260595 Lorazepam 1 MG 1 milligram Oral orally 3 times Active Oral Tablet per day 892446 venlafaxine 75 75 Oral orally 3 times [...] Mild goiter and probable thyroiditis.Released By HANANE CAO, MDDate: 10/01/2015 15:44 Vital Signs No data [...]
--- NOTE | 2017-05-28 08:56 | Emergency Department Report ---
General Adult HPI - General Chief complaint: Psychiatric Symptoms Stated complaint: [facility] eval Time Seen by Provider: 05/28/17 08:49 Source: patient, family Mode of arrival: ambulatory Limitations: no limitations - History of Present Illness HPI narrative: 67-year-old female presents to the emergency department for generations medical clearance. Patient has had recent outpatient medication changes in the have resulted in an increase of her chronic tremor and depression. She denies any pain or discomfort. She denies homicidal/suicidal ideation or plan. She denies self injury or self-harm. Patient denies any other complaints or associated symptoms. She was at home when her symptoms began over the past couple of weeks. Symptoms have been persistent in nature since onset. No other complaints or associated symptoms - Related Data Home Medications Medication Instructions Recorded Confirmed clonazePAM [Clonazepam] 1 mg PO TID #0 03/12/12 05/28/17 Mirtazapine [Remeron] 15 mg PO HS 05/28/17 05/28/17 Ondansetron [Zofran Odt] 4 mg PO Q6HR PRN 05/28/17 05/28/17 Venlafaxine [Effexor] 37.5 mg PO DAILY 05/28/17 05/28/17 Allergies Allergy/AdvReac Type Severity Reaction Status Date / Time vilazodone [From Viibryd] Allergy Intermediate Diarrhea Verified 05/29/17 01:35 Review of Systems Constitutional: Denies: fever, chills Eyes: Denies: eye pain, vision change ENT: Denies: ear pain, throat pain Cardiovascular: Denies: chest pain, palpitations Respiratory: Denies: cough, dyspnea Gastrointestinal: Denies: abdominal pain, nausea, vomiting, diarrhea Genitourinary: Denies: urgency, dysuria Musculoskeletal: Denies: back pain, arthralgia Integumentary: Denies: erythema, rash Neurological: Denies: headache, numbness Endocrine: Denies: fatigue, heat or cold intolerance Hematological/Lymphatic: Denies: easy bleeding, easy bruising Allergic/Immunologic: Denies: facial swelling, urticaria PFSH Patient Stated Medical History Cerebrovascular Accident Yes: X2 Cataracts Yes Diabetes Mellitus Type 2 Yes Depression Yes Surgical History: Cardiac Cath Family History: Reviewed and Non-contributory. - Social History Smoking status: Never smoker Substance use type: does not use Alcohol intake frequency: does not drink Physical Exam - Limitations Limitations: no limitations - General General appearance: alert, in no apparent distress - Normal Exams: Head:: Normocephalic without trauma Eyes:: Pupils are PERRLA w/ EOMI, No scleral icterus, irritation, or foreign bodies noted ENMT:: No facial trauma, nasal exudates, pharyngeal erythema, or exudates are noted Dental: No fractured, loose, or missing teeth noted Neck:: Full range of motion, without adenopathy, JVD, bruits or thyromegaly Chest/Respirations:: Clear all gordon, with good airflow, and symmetry bilaterally Cardiovascular:: Regular rate and rhythm, without murmur or gallop, Pulses 2+ all extremities, capillary refill, <2 seconds all extremities Abdomen:: Bowel sounds positive, soft, non-tender, non-distended, no hepatosplenomegaly, masses or bruits noted Lymphatic:: No lymphadenopathy, or lymphedema noted Musculoskeletal:: No tenderness, or deformity noted, good range of motion, all extremities Integumentary:: No rashes, hives, or bruising noted, hair and nails, without abnormality Neurological:: Patient is alert, and oriented, cranial nerves, motor/sensory/ cerebellar, exams w/o gross deficits, to observation Psychiatric:: Patient exhibits (Flat affect. ) Course Vital Signs Temperature 97.4 F 05/28/17 08:40 Pulse Rate 81 05/28/17 08:40 Respiratory Rate 18 05/28/17 08:40 Blood Pressure 130/82 05/28/17 08:40 Pulse Oximetry 100 05/28/17 08:40 Temperature 97.2 F 05/28/17 21:15 Pulse Rate 90 05/28/17 21:15 Respiratory Rate 16 05/28/17 21:15 Blood Pressure 115/77 05/28/17 21:15 Pulse Oximetry 94 05/28/17 21:15 Medical Decision Making - [facility] Narrative Medical decision making narrative: She is medically clear in the emergency Department. Patient is accepted to [facility] by Dr. Lovell. No further orders as accepting physician is in agreement with the current plan of management. Patient is admitted to the hospital in improved condition. Patient and family are in agreement with the current plan of management. - Differential Diagnosis depression, anxiety, metabolic process, UTI - Lab Data Result diagrams: 05/28/17 09:28 05/29/17 04:53 Lab Results 05/28/17 05/28/17 05/28/17 Range/Units 09:28 09:28 09:28 WBC 7.4 (4.5-11.0) T/MM3 RBC 5.48 H (4.00-5.20) M/MM3 Hgb 15.3 (12-16) GM/DL Hct 48.2 H (36-46) % MCV 88.0 (80-100) UM3 MCH 27.9 (26-34) UUG MCHC 31.7 (31-37) GM/DL RDW Std Deviation 48.2 (36.9-50.2) FL Plt Count 157 (130-400) T/MM3 MPV 11.3 (9.4-12.4) UM3 Immature Gran % (Auto) 0.5 (0.0-0.5) % Neut % (Auto) 45.0 (33-66) % Lymph % (Auto) 38.2 (23-45) % Hudson % (Auto) 6.2 (0-9.0) % Eos % (Auto) 9.6 H (0-4) % Baso % (Auto) 0.5 (0-2) % Neut # (Auto) 3.3 (1.8-7.7) T/MM3 Lymph # (Auto) 2.8 (1-4.8) T/MM3 Hudson # (Auto) 0.5 (0-0.8) T/MM3 Eos # (Auto) 0.7 H (0-0.5) T/MM3 Baso # (Auto) 0.0 (0-0.2) T/MM3 Abs Immat Gran (auto) 0.04 H (0.00-0.03) T/MM3 Turbidity < 20 (0-20) Sodium 149 H (134-144) MEQ/L Potassium 3.8 (3.6-5) MEQ/L Chloride 111 H (98-107) MEQ/L Carbon Dioxide 28 (22-30) MEQ/L Anion Gap 10 (5-15) MEQ/L BUN 12.0 (7-17) MG/DL Creatinine 0.8 (0.7-1.2) MG/DL GFR Calculation 71 BUN/Creatinine Ratio 15 (6-26) RATIO Glucose 129 H (65-110) MG/DL Hemoglobin A1c 5.9 L (6.1-7.9) % Calculated Osmolality 288 H (261-280) MOSM/KG Calcium 10.3 H (8.4-10.2) MG/DL Total Bilirubin 0.30 (0.20-1.30) MG/DL Icterus Index < 2 (0-7) AST 19 (14-36) U/L ALT 27 (9-52) U/L Alkaline Phosphatase 59 (38-126) U/L Troponin I < 0.012 (0-0.12) ng/ml Total Protein 7.3 (6.3-8.2) G/DL Albumin 3.9 (3.5-5.0) G/DL Globulin 3.4 (2.4-3.6) G/DL Albumin/Globulin Ratio 1.1 (1.1-2.2) RATIO Specimen Hemolysis < 15 (0-25) Ur Collection Type Urine Color (YELLOW) Urine Clarity Urine pH (5.0-8.0) Ur Specific [place] (1.015-1.025) Urine Protein (NEGATIVE) Urine Glucose (UA) (NEGATIVE) Urine Ketones (NEGATIVE) Urine Occult Blood (NEGATIVE) Urine Nitrate (NEGATIVE) Urine Bilirubin (NEGATIVE) Urine Urobilinogen (NORMAL) EU/DL Ur Leukocyte Esterase (NEGATIVE) Urinalysis Comment 05/28/17 Range/Units 10:14 WBC (4.5-11.0) T/MM3 RBC (4.00-5.20) M/MM3 Hgb (12-16) GM/DL Hct (36-46) % MCV (80-100) UM3 MCH (26-34) UUG MCHC (31-37) GM/DL RDW Std Deviation (36.9-50.2) FL Plt Count (130-400) T/MM3 MPV (9.4-12.4) UM3 Immature Gran % (Auto) (0.0-0.5) % Neut % (Auto) (33-66) % Lymph % (Auto) (23-45) % Hudson % (Auto) (0-9.0) % Eos % (Auto) (0-4) % Baso % (Auto) (0-2) % Neut # (Auto) (1.8-7.7) T/MM3 Lymph # (Auto) (1-4.8) T/MM3 Hudson # (Auto) (0-0.8) T/MM3 Eos # (Auto) (0-0.5) T/MM3 Baso # (Auto) (0-0.2) T/MM3 Abs Immat Gran (auto) (0.00-0.03) T/MM3 Turbidity (0-20) Sodium (134-144) MEQ/L Potassium (3.6-5) MEQ/L Chloride (98-107) MEQ/L Carbon Dioxide (22-30) MEQ/L Anion Gap (5-15) MEQ/L BUN (7-17) MG/DL Creatinine (0.7-1.2) MG/DL GFR Calculation BUN/Creatinine Ratio (6-26) RATIO Glucose (65-110) MG/DL Hemoglobin A1c (6.1-7.9) % Calculated Osmolality (261-280) MOSM/KG Calcium (8.4-10.2) MG/DL Total Bilirubin (0.20-1.30) MG/DL Icterus Index (0-7) AST (14-36) U/L ALT (9-52) U/L Alkaline Phosphatase (38-126) U/L Troponin I (0-0.12) ng/ml Total Protein (6.3-8.2) G/DL Albumin (3.5-5.0) G/DL Globulin (2.4-3.6) G/DL Albumin/Globulin Ratio (1.1-2.2) RATIO Specimen Hemolysis (0-25) Ur Collection Type Urine, catheter Urine Color Yellow (YELLOW) Urine Clarity Sl cloudy Urine pH 5.5 (5.0-8.0) Ur Specific [place] >=1.030 H (1.015-1.025) Urine Protein Negative (NEGATIVE) Urine Glucose (UA) Negative (NEGATIVE) Urine Ketones Negative (NEGATIVE) Urine Occult Blood Trace-intact (NEGATIVE) Urine Nitrate Negative (NEGATIVE) Urine Bilirubin Negative (NEGATIVE) Urine Urobilinogen 0.2 (NORMAL) EU/DL Ur Leukocyte Esterase Trace A (NEGATIVE) Urinalysis Comment Microscopic not ind. - Radiology Data CXR - No acute processes. - EKG Data EKG #1 EKG results narrative: Sinus rhythm. 80 bpm. No STEMI. Normal EKG Disposition Clinical Impression: MAJOR DEPRESSIVE DISORDER Disposition: 63 To [facility] Condition: Stable Time of Disposition: 10:30 - Seen By: physician
--- NOTE | 2017-05-28 10:03 | XRay Report ---
EXAM: XR chest 1V HISTORY: med. clearance COMPARISON: No available studies for comparison. FINDINGS: The cardiomediastinal silhouette is normal. The mediastinum is not widened. The trachea is midline. The pulmonary vascularity is not engorged. The lung gordon are clear and the costophrenic angles are sharp. The bony thorax is mildly demineralized showing early degenerative changes. IMPRESSION: No acute cardiopulmonary process is identified. .
[2017-05-28] MEDS ORDERED: LORazepam 0.5 MG TABLET PO PRN (10:38)
[2017-05-28] MEDS ORDERED: HALOPERIDOL 0.5 MG TABLET PO PRN (10:38)
[2017-05-28] MEDS ORDERED: HALOPERIDOL 5 MG/ML INJECTION IM PRN (10:38)
[2017-05-28 12:02] VITALS: BMI 30.6
[2017-05-28] MEDS: ONDANSETRON ODT 4 MG TABLET PO PRN (14:42)
[2017-05-28] MEDS: ClonazePAM 1 MG TABLET PO SCH ×2 (14:58→21:16)
--- NOTE | 2017-05-28 15:25 | History & Physical Report ---
<Dione Booth V - Last Filed: 05/28/17 15:55> History of Present Illness Date: 05/28/17 Chief complaint: depression, anxiety HPI: She is a 67-year-old female who currently resides independently with her in [place], [place]. She has been under the primary care of Dr. Yesica Sanders with internal medicine in [place], [place]. Patient was accepted to [facility] generations unit. She was initially brought to the emergency room for medical evaluation. CBC overall unremarkable. Chemistry panel, sodium was elevated at 149, potassium 3.8, BUN 12, creatinine 0.8, glucose 129. Troponin negative. Urinalysis had trace leukocyte esterase, otherwise unremarkable. A chest x-ray is obtained in the emergency room showed no acute crit a pulmonary process. Patient was then directly admitted to [facility] unit for further psychiatric evaluation and treatment. Following acute clinical examination I did contact patient's primary care provider, Dr. Sanders in [place], [place] to obtain a more thorough history. PCP reports that patient often is a no-show to her practice. The majority of her chronic comorbidities have been psychological in nature. Patient has seen multiple psychiatrists in the [place] area, however, she often receives care from 1 and then changes frequently as she does not like current treatment plans. While she knew she was being weaned down off of Effexor and she felt that it was causing her to have head and neck tremors. He has also been seen by numerous neurologists as patient reports chronic tremors for the past 2-3 years. PCP reports that patient was started on metformin for diabetes, however, patient reports she has not taken it for months. Patient is seen for initial medical consultation will sitting in her room in [facility] looking up the window. She reports she's been having chronic nausea for several months. She has been utilizing Zofran for the past 20 days every 6 hours. Multiple times throughout physical examination. Patient becomes emotional. Begins to cry then proceeded by shaking of her head rapidly back and forth for approximately 5 seconds. Was able to be redirected and head shaking stops. Patient is tearful as she describes her 47-year-old son recently suffered from an acute stroke and is unable to speak or walk currently. She is upset that she has not been able to see her son as she has had to stay at home. Patient's reports she is sad does not get up out of bed, has a lack of energy. Review of Systems All systems PM: 10-point ROS was reviewed, no additional remarkable complaints except - Neurological Neurological Comments: Head and neck tremors- intermittently - Psychiatric Psychiatric: Present: as per HPI, anxiety, behavioral changes, hopelessness PFSH Patient Stated Medical History Cerebrovascular Accident? Cataracts Diabetes Mellitus Type 2 Hypertension mitral valve prolapse. Tubular adenoma the cecum. Diverticulosis History of BPV Depression , anxiety Surgical History: Hysterectomy. Cholecystectomy. Tonsillectomy. Appendectomy with oophorectomy. EGD/Colonoscopy-2013- (chronic gastritis and esophagitis). Vulvar biopsy- Benign lichen sclerosis [id number]) Family History: Father-emphysema Mother at age 57 from pneumonia, depression. Brother at age 67 from colon cancer. Patient has 4 living children. One son age 47 recently had an acute CVA - Social History Smoking status: Never smoker Substance use type: does not use Alcohol intake frequency: does not drink Housing: house Household members: spouse Current residence: Apartment/Private Home Social history: Resides independently at home and [facility] with . PCP Dr. Yesica De La Paz- [facility] Medications Home Medications Medication Instructions Recorded Confirmed Type clonazePAM [Clonazepam] 1 mg PO TID #0 03/12/12 05/28/17 History Mirtazapine [Remeron] 15 mg PO HS 05/28/17 05/28/17 History Ondansetron [Zofran Odt] 4 mg PO Q6HR PRN 05/28/17 05/28/17 History Venlafaxine [Effexor] 37.5 mg PO DAILY 05/28/17 05/28/17 History Allergies Allergy/AdvReac Type Severity Reaction Status Date / Time No Known Allergies Allergy Verified 05/28/17 09:21 Exam Vital Signs: Temperature 97.6 F 05/28/17 11:50 Pulse Rate 77 05/28/17 11:50 Respiratory Rate 18 05/28/17 11:50 Blood Pressure 135/75 05/28/17 11:50 Pulse Oximetry 97 05/28/17 11:50 Height/Weight/BMI: Height 1.6 m Weight 78.4 kg Body Mass Index 30.6 - Constitutional Present: well nourished, well developed - Routine HEENT Exam Eye: Present: EOMI ENT: Present: mucous membranes moist, dentition normal - Routine Respiratory Exam Present: CTA bilaterally. Absent: wheezes - Routine Cardiovascular Exam Present: RRR, S1, S2. Absent: murmur - Routine Abdominal Exam Present: soft, normoactive bowel sounds, non distended. Absent: tenderness - Routine Extremities Exam Present: full ROM, normal capillary refill - Routine Back/Spine/Pelvis Exam Back/Spine: Present: full ROM - Routine Skin Exam Present: intact, dry, warm - Routine Neurological Exam Present: alert, oriented X3, CN II-XII intact - Routine Psychiatric Exam Present: anxious Results - Labs CBC & Chem 7: 05/28/17 09:28 05/28/17 09:28 Assessment and Plan (1) Depression Current visit: Yes Status: Acute Assessment and Plan: Impression Anxiety Hypernatremia- POA Depression Chronic Nausea Tremor- Chronic DM- currently not taking meds HTN Plan Agree with admission to [facility] unit for inpatient psychiatric evaluation and treatment Will speak with Dr. Lovell regarding information that patient has seen multiple psychiatrists in the [place] area and they've been admission, making numerous medication changes. PCP was informed that Effexor dose was being decreased, however, patient felt that it was being decreased to quickly and she was having symptoms. Will continue with PRN Zofran as needed for nausea. May consider schedule Reglan also. PCP feels that her nausea may be psychiatric in nature. Since last EGD was in 2013 at which time she was found to have esophagitis with chronic gastritis. It is likely that her persistent nausea is multifactorial including psychiatric versus gastritis. Will continue to follow. Obtain a hemoglobin A1c and as needed Accu-Cheks. Patient has been off her metformin for "several months". Monitor blood pressure Encourage PO intake in light of hypernatremia. Will encourage PO intake and recheck BMP tomorrow. If hypernatremia is persistent will consider IV hydration. Encourage patient to participate in unit activities and provide a safe environment Hospital services will continue to follow patient in consultation medical management. Existing comorbidities. At time of discharge, her primary care will return to Dr. Yesica De La [facility] Resuscitation Status: Full Code Hospital Course Summary Disclaimer: The visit summary below is not to be considered part of the above Progress Note. Hospital Course: 05/28/17 Impression Anxiety Depression Hypernatremia- POA Chronic Nausea Tremor- Chronic DM- currently not taking meds HTN Plan Agree with admission to [facility] unit for inpatient psychiatric evaluation and treatment Will speak with Dr. Lovell regarding information that patient has seen multiple psychiatrists in the [place] area and they've been admission, making numerous medication changes. PCP was informed that Effexor dose was being decreased, however, patient felt that it was being decreased to quickly and she was having symptoms. Will continue with PRN Zofran as needed for nausea. May consider schedule Reglan also. PCP feels that her nausea may be psychiatric in nature. Since last EGD was in 2013 at which time she was found to have esophagitis with chronic gastritis. It is likely that her persistent nausea is multifactorial including psychiatric versus gastritis. Will continue to follow. Obtain a hemoglobin A1c and as needed Accu-Cheks. Patient has been off her metformin for "several months". Monitor blood pressure Encourage PO intake in light of hypernatremia. Will encourage PO intake and recheck BMP tomorrow. If hypernatremia is persistent will consider IV hydration. Encourage patient to participate in unit activities and provide a safe environment Hospital services will continue to follow patient in consultation medical management. Existing comorbidities. At time of discharge, her primary care will return to Dr. Yesica [facility] <Edmund Bullock IV - Last Filed: 05/28/17 17:04> History of Present Illness Date: 05/28/17 [facility] Patient Stated Medical History Cerebrovascular Accident Yes: X2 Cataracts Yes Diabetes Mellitus Type 2 Yes Depression Yes Exam Vital Signs: Temperature 97.6 F 05/28/17 16:25 Pulse Rate 77 05/28/17 16:45 Respiratory Rate 18 05/28/17 16:45 Blood Pressure 121/70 05/28/17 16:25 Pulse Oximetry 98 05/28/17 16:45 Height/Weight/BMI: Height 5 ft 3 in Weight 78.4 kg Body Mass Index 30.6 Results - Labs CBC & Chem 7: 05/28/17 09:28 05/28/17 09:28 Assessment and Plan (1) Depression Current visit: Yes Status: Acute Assessment and Plan: I have independently interviewed and examined the patient. I have reviewed the medical record. The plan has been discussed and formulated with [employer] as above with the additions below. 67 yo being admitted to generations unit with complaints of nausea for several months. Patient unable to say how long she has had nausea. c/o head and neck tremor. She ahakes her head at times to demonstrate the tremor, but it was not present otherwise. Patient hard of hearing and many questions had to be repeated. She has been taking Zofran at home but is not sure it has helped. Patient has also sought treatment for depression and anxiety and is needing inpatient help at this time. She denies emesis. Says eating usually brings on the nausea. Says she has been loosing weight but unable to give time frame. No bowel problems reported. Denies dysuria. VSS lungs clear heart regular abdomen s/nt/nd +BS no edema knows this is [birth year] b/c it is her birthday but unable to say it is 2018. Could not name president. CN II-XII intact, SEE Continue zofran and monitor. Could consider Reglan with meals. Recheck Na. Encourage patient to stay hydrated. With a1c of 5.7, will observe off metformin. Hospital Course Summary Disclaimer: The visit summary below is not to be considered part of the above Progress Note.
--- NOTE | 2017-05-28 19:41 | 24 Hour Neuropsychiatic Eval ---
Date of Admission: 05/28/17 10:55 Chief complaint: "My head shakes" History of Present Illness: HPI: 67 Y/O CF sent from where she lives with her for increasing depression and self care failure. Pt states she has been dealing with chronic nausea which makes it difficult to eat. She reports feeling depressed and anxious. She denies any S/i. STRESSORS: PT states her head shakes which is a stressor. On two occasions her head shakes back and forth for about 5 seconds which appears to be under her control although she denies this. She reports her son had a stroke in January and he still has some physical issues. PSYCH ROS: Pt reports feeling depressed with low interest, energy, motivation and has anhedonia. She reports feeling helpless and hopeless. She reports having high anxiety at times. She denies erik. She reports hearing 'music" at times. SHe denies any other psychotic symptoms. She has numerous somatic concerns. PAST PSYCH: Pt is seen by Dr. Maxwell in [place] at the [facility]. She is currently being tapered off Effexor and was started on Remeron. She feels the Remeron has caused some nightmares. She states she has been on Viibryd, Lexapro, and Wellbutrin in the past. She has never tried to harm herself and has never been in a psychiatric hospital. [facility] Patient Stated Medical History Cerebrovascular Accident Yes: X2 Cataracts Yes Diabetes Mellitus Type 2 Yes Depression Yes Surgical History: Hysterectomy. Cholecystectomy. Tonsillectomy. Appendectomy with oophorectomy. EGD/Colonoscopy-2013- (chronic gastritis and esophagitis). Vulvar biopsy- Benign lichen sclerosis [id number]) - Social History Smoking status: Never smoker Current residence: Apartment/Private Home Review of Systems - Neurological Neurological: Present: headache(s), paresthesias - Psychiatric Psychiatric: Present: anxiety, depression, hopelessness Mental Status Exam Vitals: Last Vital Signs Temp 97.6 F 05/28/17 16:25 Pulse 77 05/28/17 16:45 Resp 18 05/28/17 16:45 BP 121/70 05/28/17 16:25 Pulse Ox 98 05/28/17 16:45 Height: 1.6 m Weight: 78.4 kg - Mental Status Exam Muscle Strength/Tone: Normal Dressing: Casual Grooming: Fair Attitude: Guarded Motor Activity: Retardation Eye Contact: Fair Speech: Slowed Volume: Soft Rhythm: Mumbled Orientation: Oriented X4 Mood: Depressed Affect: Sad Rate of Thoughts: Delayed Thought Organization: Organized Associations: Intact Thought Content: Hopelessness, Helplessness, Worthlessness Perception/Psychotic: Perception Normal Language: Naming Intact Fund of Knowledge: Poor fund of knowledge Memory: Poor-immediate Suicidal Ideation: None Homicidal Ideation: None Insight: Poor Judgement: Poor Impulse Control: Poor - Laboratory Result Diagrams: 05/28/17 09:28 05/28/17 09:28 Assessment and Plan (1) Major depressive disorder with current active episode Qualifiers: Major depression recurrence: recurrent Major depression episode severity: severe Psychotic features: without psychotic features Qualified Code(s): F33.2 - Major depressive disorder, recurrent severe without psychotic features Current visit: Yes Status: Acute Continue to evaluate and stabilize. Will D/C Remeron. Decrease Remeron to 7.5mg at HS. Continue Clonazepam and will work to decrease dose
[2017-05-28] MEDS ORDERED: MIRTAZAPINE 15 MG TABLET PO SCH (21:00)
[2017-05-28] MEDS: MIRTAZAPINE 15 MG TABLET PO SCH (21:17)
[2017-05-29] MEDS: ClonazePAM 1 MG TABLET PO SCH ×3 (08:36→20:04)
[2017-05-29] MEDS ORDERED: VENLAFAXINE 37.5 MG TABLET PO SCH (09:00)
[2017-05-29] MEDS ORDERED: INFLUENZA VAC. INJ. ADMIN CHARGE INJ ONE (15:00)
[2017-05-29] MEDS ORDERED: INFLUENZA VAC High Dose 2017-18 (Fluzone HD*) (>=65yo) 0.5ml IM ONE (16:29)
--- NOTE | 2017-05-29 18:45 | Neuropsych Progress Note ---
[facility]ations Subjective Date: 05/29/17 - Sujective/Severity of Illness Medications: Clonazepam (Klonopin) 1 mg PO TID ANJEL Last Admin: 05/29/17 15:48 Dose: 1 mg Haloperidol (Haldol) 0.5 mg PO Q6H PRN PRN Reason: Extreme agitation Haloperidol Lactate (Haldol) 0.5 mg IM Q6H PRN PRN Reason: Extreme agitation Lorazepam (Ativan Inj) 0.5 mg IM Q6H PRN PRN Reason: Extreme agitation Lorazepam (Ativan) 0.5 mg PO Q6H PRN PRN Reason: Extreme agitation Mirtazapine (Remeron) 7.5 mg PO HS ANJEL Last Admin: 05/28/17 21:17 Dose: 7.5 mg Ondansetron HCl (Zofran Po) 4 mg PO Q6HR PRN PRN Reason: Nausea Last Admin: 05/28/17 14:42 Dose: 4 mg Sodium Chloride (Iv Flush) 10 - 80 ml IVF PRN PRN PRN Reason: Flushing Subjective: Pt seen and chart examined. Nursing reports pt is doing well on the unit. Sleeping well and has a good appetite. Scored a 13 on her SLUMS. On face to face the pt states she feels a little better. She states she had a nightmare and woke up in a panic. She states she feels her mood is improved as well as her anxiety. Less somatic symptoms today. Tolerating meds Start Time: 16:15 Stop Time: 16:30 Mental Status Exam Vitals: Last Vital Signs Temp 97.7 F 05/29/17 16:00 Pulse 85 05/29/17 16:00 Resp 16 05/29/17 16:00 BP 146/72 H 05/29/17 16:00 Pulse Ox 99 05/29/17 16:00 Height: 1.6 m Weight: 78.4 kg - Mental Status Exam Muscle Strength/Tone: Normal Dressing: Casual Grooming: Fair Attitude: Guarded Motor Activity: Retardation Eye Contact: Fair Speech: Slowed Volume: Soft Rhythm: Mumbled Orientation: Oriented X4 Mood: Depressed Rate of Thoughts: Delayed Thought Organization: Organized Associations: Intact Thought Content: Hopelessness, Helplessness, Worthlessness Perception/Psychotic: Perception Normal Language: Naming Intact Fund of Knowledge: Poor fund of knowledge Memory: Poor-immediate Suicidal Ideation: None Homicidal Ideation: None Insight: Poor Judgement: Poor Impulse Control: Poor - Laboratory Result Diagrams: 05/28/17 09:28 05/29/17 04:53 Laboratory Results - last 24 hr 05/29/17 04:53 Turbidity < 20 Sodium 143 D Potassium 3.9 Chloride 110 H Carbon Dioxide 27 Anion Gap 6 BUN 14.0 Creatinine 0.8 GFR Calculation 71 BUN/Creatinine Ratio 18 Glucose 108 Calculated Osmolality 277 Calcium 9.7 Icterus Index < 2 Specimen Hemolysis < 15 Assessment and Plan (1) Major depressive disorder with current active episode Qualifiers: Major depression recurrence: recurrent Major depression episode severity: severe Psychotic features: without psychotic features Qualified Code(s): F33.2 - Major depressive disorder, recurrent severe without psychotic features Current visit: Yes Status: Acute Hospital Course Summary Disclaimer: The visit summary below is not to be considered part of the above Progress Note. Hospital Course: 05/28/17 Impression Anxiety Depression Hypernatremia- POA Chronic Nausea Tremor- Chronic DM- currently not taking meds HTN Plan Agree with admission to [facility] unit for inpatient psychiatric evaluation and treatment Will speak with Dr. Lovell regarding information that patient has seen multiple psychiatrists in the [place] area and they've been admission, making numerous medication changes. PCP was informed that Effexor dose was being decreased, however, patient felt that it was being decreased to quickly and she was having symptoms. Will continue with PRN Zofran as needed for nausea. May consider schedule Reglan also. PCP feels that her nausea may be psychiatric in nature. Since last EGD was in 2013 at which time she was found to have esophagitis with chronic gastritis. It is likely that her persistent nausea is multifactorial including psychiatric versus gastritis. Will continue to follow. Obtain a hemoglobin A1c and as needed Accu-Cheks. Patient has been off her metformin for "several months". Monitor blood pressure Encourage PO intake in light of hypernatremia. Will encourage PO intake and recheck BMP tomorrow. If hypernatremia is persistent will consider IV hydration. Encourage patient to participate in unit activities and provide a safe environment Hospital services will continue to follow patient in consultation medical management. Existing comorbidities. At time of discharge, her primary care will return to Dr. Yesica Sanders[facility] 05/29/17 18:44 Slightly improved. Continue current care
[2017-05-29] MEDS: MIRTAZAPINE 15 MG TABLET PO SCH (20:04)
[2017-05-30] MEDS: ClonazePAM 1 MG TABLET PO SCH ×3 (09:01→21:53)
--- NOTE | 2017-05-30 12:23 | Neuropsych Progress Note ---
[facility] Subjective Date: 05/30/17 - Sujective/Severity of Illness Medications: Clonazepam (Klonopin) 1 mg PO TID ANJEL Last Admin: 05/30/17 09:01 Dose: 1 mg Haloperidol (Haldol) 0.5 mg PO Q6H PRN PRN Reason: Extreme agitation Haloperidol Lactate (Haldol) 0.5 mg IM Q6H PRN PRN Reason: Extreme agitation Lorazepam (Ativan Inj) 0.5 mg IM Q6H PRN PRN Reason: Extreme agitation Lorazepam (Ativan) 0.5 mg PO Q6H PRN PRN Reason: Extreme agitation Mirtazapine (Remeron) 7.5 mg PO HS ANJEL Last Admin: 05/29/17 20:04 Dose: 7.5 mg Ondansetron HCl (Zofran Po) 4 mg PO Q6HR PRN PRN Reason: Nausea Last Admin: 05/28/17 14:42 Dose: 4 mg Sodium Chloride (Iv Flush) 10 - 80 ml IVF PRN PRN PRN Reason: Flushing Subjective: Pt seen and chart examined. Nursing reports pt is doing well on the unit. Some what isolative but no behaviors noted. On face to face the pt states she is depressed today. She states she did not sleep well last night and feels guilty that she is not with her son who is recovering from a stroke. She reports feeling anxious at times. Denies S/I or psychosis. Tolerating meds Start Time: 11:15 Stop Time: 11:30 Mental Status Exam Vitals: Last Vital Signs Temp 98.4 F 05/30/17 08:00 Pulse 77 05/30/17 08:00 Resp 16 05/30/17 08:00 BP 134/68 05/30/17 08:00 Pulse Ox 92 05/30/17 08:00 Height: 1.6 m Weight: 78.4 kg - Mental Status Exam Muscle Strength/Tone: Normal Dressing: Casual Grooming: Fair Attitude: Guarded Motor Activity: Retardation Eye Contact: Fair Speech: Slowed Volume: Soft Rhythm: Mumbled Orientation: Oriented X4 Mood: Depressed Rate of Thoughts: Delayed Thought Organization: Organized Associations: Intact Thought Content: Hopelessness, Helplessness, Worthlessness Perception/Psychotic: Perception Normal Language: Naming Intact Fund of Knowledge: Poor fund of knowledge Memory: Poor-immediate Suicidal Ideation: None Homicidal Ideation: None Insight: Poor Judgement: Poor Impulse Control: Poor - Laboratory Result Diagrams: 05/28/17 09:28 05/29/17 04:53 Assessment and Plan (1) Major depressive disorder with current active episode Qualifiers: Major depression recurrence: recurrent Major depression episode severity: severe Psychotic features: without psychotic features Qualified Code(s): F33.2 - Major depressive disorder, recurrent severe without psychotic features Current visit: Yes Status: Acute Hospital Course Summary Disclaimer: The visit summary below is not to be considered part of the above Progress Note. Hospital Course: 05/28/17 Impression Anxiety Depression Hypernatremia- POA Chronic Nausea Tremor- Chronic DM- currently not taking meds HTN Plan Agree with admission to [facility] unit for inpatient psychiatric evaluation and treatment Will speak with Dr. Lovell regarding information that patient has seen multiple psychiatrists in the [place] area and they've been admission, making numerous medication changes. PCP was informed that Effexor dose was being decreased, however, patient felt that it was being decreased to quickly and she was having symptoms. Will continue with PRN Zofran as needed for nausea. May consider schedule Reglan also. PCP feels that her nausea may be psychiatric in nature. Since last EGD was in 2013 at which time she was found to have esophagitis with chronic gastritis. It is likely that her persistent nausea is multifactorial including psychiatric versus gastritis. Will continue to follow. Obtain a hemoglobin A1c and as needed Accu-Cheks. Patient has been off her metformin for "several months". Monitor blood pressure Encourage PO intake in light of hypernatremia. Will encourage PO intake and recheck BMP tomorrow. If hypernatremia is persistent will consider IV hydration. Encourage patient to participate in unit activities and provide a safe environment Hospital services will continue to follow patient in consultation medical management. Existing comorbidities. At time of discharge, her primary care will return to Dr. Yesica Sanders[facility] [facility] 05/29/17 18:44 Slightly improved. Continue current care 05/30/17 12:22 Reports feeling more depressed today. Will increase Remeron to 15mg at HS
[2017-05-30] MEDS: MIRTAZAPINE 15 MG TABLET PO SCH (20:26)
[2017-05-31] MEDS: ClonazePAM 1 MG TABLET PO SCH ×3 (10:04→20:25)
--- NOTE | 2017-05-31 12:20 | Neuropsych Progress Note ---
[facility] Subjective Date: 05/31/17 - Sujective/Severity of Illness Medications: Clonazepam (Klonopin) 1 mg PO TID [facility] Last Admin: 05/31/17 10:04 Dose: 1 mg Haloperidol (Haldol) 0.5 mg PO Q6H PRN PRN Reason: Extreme agitation Haloperidol Lactate (Haldol) 0.5 mg IM Q6H PRN PRN Reason: Extreme agitation Lorazepam (Ativan Inj) 0.5 mg IM Q6H PRN PRN Reason: Extreme agitation Lorazepam (Ativan) 0.5 mg PO Q6H PRN PRN Reason: Extreme agitation Mirtazapine (Remeron) 15 mg PO HS [facility] Last Admin: 05/30/17 20:26 Dose: 15 mg Ondansetron HCl (Zofran Po) 4 mg PO Q6HR PRN PRN Reason: Nausea Last Admin: 05/28/17 14:42 Dose: 4 mg Sodium Chloride (Iv Flush) 10 - 80 ml IVF PRN PRN PRN Reason: Flushing Subjective: Pt seen and chart examined. Nursing reports pt is doing well on the unit. On face to face the pt states she is feeling better. Slept better last night and mood and anxiety are slightly improved. Denies S/I. Tolerating meds. Continues to voice guilt around not helping her son. Start Time: 11:30 Stop Time: 11:45 Mental Status Exam Vitals: Last Vital Signs Temp 97.6 F 05/31/17 08:00 Pulse 77 05/31/17 08:00 Resp 16 05/31/17 08:00 BP 143/82 H 05/31/17 08:00 Pulse Ox 98 05/31/17 08:00 Height: 1.6 m Weight: 78.4 kg - Mental Status Exam Muscle Strength/Tone: Normal Dressing: Casual Grooming: Fair Attitude: Guarded Motor Activity: Retardation Eye Contact: Fair Speech: Slowed Volume: Soft Rhythm: Mumbled Orientation: Oriented X4 Mood: Depressed Rate of Thoughts: Delayed Thought Organization: Organized Associations: Intact Thought Content: Hopelessness, Helplessness, Worthlessness Perception/Psychotic: Perception Normal Language: Naming Intact Fund of Knowledge: Poor fund of knowledge Memory: Poor-immediate Suicidal Ideation: None Homicidal Ideation: None Insight: Poor Judgement: Poor Impulse Control: Poor - Laboratory Result Diagrams: 05/28/17 09:28 10/27/17 04:53 Assessment and Plan (1) Major depressive disorder with current active episode Qualifiers: Major depression recurrence: recurrent Major depression episode severity: severe Psychotic features: without psychotic features Qualified Code(s): F33.2 - Major depressive disorder, recurrent severe without psychotic features Current visit: Yes Status: Acute Hospital Course Summary Disclaimer: The visit summary below is not to be considered part of the above Progress Note. Hospital Course: 05/28/17 Impression Anxiety Depression Hypernatremia- POA Chronic Nausea Tremor- Chronic DM- currently not taking meds HTN Plan Agree with admission to [facility] for inpatient psychiatric evaluation and treatment Will speak with Dr. Lovell regarding information that patient has seen multiple psychiatrists in the [place] area and they've been admission, making numerous medication changes. PCP was informed that Effexor dose was being decreased, however, patient felt that it was being decreased to quickly and she was having symptoms. Will continue with PRN Zofran as needed for nausea. May consider schedule Reglan also. PCP feels that her nausea may be psychiatric in nature. Since last EGD was in 2013 at which time she was found to have esophagitis with chronic gastritis. It is likely that her persistent nausea is multifactorial including psychiatric versus gastritis. Will continue to follow. Obtain a hemoglobin A1c and as needed Accu-Cheks. Patient has been off her metformin for "several months". Monitor blood pressure Encourage PO intake in light of hypernatremia. Will encourage PO intake and recheck BMP tomorrow. If hypernatremia is persistent will consider IV hydration. Encourage patient to participate in unit activities and provide a safe environment Hospital services will continue to follow patient in consultation medical management. Existing comorbidities. At time of discharge, her primary care will return to Dr. Yesica [facility] 05/29/17 18:44 Slightly improved. Continue current care 05/30/17 12:22 Reports feeling more depressed today. Will increase Remeron to 15mg at HS 05/31/17 12:19 Mood improving. Slept well. Continue current care
[2017-05-31] MEDS: MIRTAZAPINE 15 MG TABLET PO SCH (20:25)
[2017-06-01] MEDS: ClonazePAM 1 MG TABLET PO SCH ×3 (10:16→20:13)
[2017-06-01] MEDS: ONDANSETRON ODT 4 MG TABLET PO PRN (16:38)
[2017-06-01] MEDS: MIRTAZAPINE 15 MG TABLET PO SCH (19:56)
[2017-06-01] MEDS: TRAZODONE 50 MG TABLET PO SCH (20:13)
--- NOTE | 2017-06-01 21:22 | Neuropsych Progress Note ---
Estela Subjective Date: 06/01/17 - Sujective/Severity of Illness Medications: Clonazepam (Klonopin) 1 mg PO TID [facility] Last Admin: 06/01/17 20:13 Dose: 1 mg Haloperidol (Haldol) 0.5 mg PO Q6H PRN PRN Reason: Extreme agitation Haloperidol Lactate (Haldol) 0.5 mg IM Q6H PRN PRN Reason: Extreme agitation Lorazepam (Ativan Inj) 0.5 mg IM Q6H PRN PRN Reason: Extreme agitation Lorazepam (Ativan) 0.5 mg PO Q6H PRN PRN Reason: Extreme agitation Mirtazapine (Remeron) 15 mg PO [facility] Last Admin: 05/31/17 20:25 Dose: 15 mg Ondansetron HCl (Zofran Po) 4 mg PO Q6HR PRN PRN Reason: Nausea Last Admin: 06/01/17 16:38 Dose: 4 mg Sodium Chloride (Iv Flush) 10 - 80 ml IVF PRN PRN PRN Reason: Flushing Trazodone HCl (Desyrel) 50 mg PO [facility] Last Admin: 06/01/17 20:13 Dose: 50 mg Subjective: Pt seen and chart examined. Nursing reports pt slept well but has been isolative today. On face to face the pt states she felt 'emotionless" today and it scared her. She states she believes it was due to the Remeron and she would like to discuss it. We discussed at length that this was most likely not the medication but pt states she does not want to take it any more. She states Quaero has worked in the past. She remains depressed and anxious. Denies S/ I. Start Time: 17:30 Stop Time: 17:45 Mental Status Exam Vitals: Last Vital Signs Temp 98 F 06/01/17 16:33 Pulse 88 06/01/17 16:33 Resp 18 06/01/17 16:33 BP 124/76 06/01/17 16:33 Pulse Ox 95 06/01/17 16:33 Height: 1.6 m Weight: 78.4 kg - Mental Status Exam Muscle Strength/Tone: Normal Dressing: Casual Grooming: Fair Attitude: Guarded Motor Activity: Retardation Eye Contact: Fair Speech: Slowed Volume: Soft Rhythm: Mumbled Orientation: Oriented X4 Mood: Depressed Rate of Thoughts: Delayed Thought Organization: Organized Associations: Intact Thought Content: Hopelessness, Helplessness, Worthlessness Perception/Psychotic: Perception Normal Language: Naming Intact Fund of Knowledge: Poor fund of knowledge Memory: Poor-immediate Suicidal Ideation: None Homicidal Ideation: None Insight: Poor Judgement: Poor Impulse Control: Poor - Laboratory Result Diagrams: 05/28/17 09:28 05/29/17 04:53 Assessment and Plan (1) Major depressive disorder with current active episode Qualifiers: Major depression recurrence: recurrent Major depression episode severity: severe Psychotic features: without psychotic features Qualified Code(s): F33.2 - Major depressive disorder, recurrent severe without psychotic features Current visit: Yes Status: Acute Hospital Course Summary Disclaimer: The visit summary below is not to be considered part of the above Progress Note. Hospital Course: 05/28/17 Impression Anxiety Depression Hypernatremia- POA Chronic Nausea Tremor- Chronic DM- currently not taking meds HTN Plan Agree with admission to [facility] for inpatient psychiatric evaluation and treatment Will speak with Dr. Lovell regarding information that patient has seen multiple psychiatrists in the [place] area and they've been admission, making numerous medication changes. PCP was informed that Effexor dose was being decreased, however, patient felt that it was being decreased to quickly and she was having symptoms. Will continue with PRN Zofran as needed for nausea. May consider schedule Reglan also. PCP feels that her nausea may be psychiatric in nature. Since last EGD was in 2013 at which time she was found to have esophagitis with chronic gastritis. It is likely that her persistent nausea is multifactorial including psychiatric versus gastritis. Will continue to follow. Obtain a hemoglobin A1c and as needed Accu-Cheks. Patient has been off her metformin for "several months". Monitor blood pressure Encourage PO intake in light of hypernatremia. Will encourage PO intake and recheck BMP tomorrow. If hypernatremia is persistent will consider IV hydration. Encourage patient to participate in unit activities and provide a safe environment Hospital services will continue to follow patient in consultation medical management. Existing comorbidities. At time of discharge, her primary care will return to Dr. Yesica [facility] 05/29/17 18:44 Slightly improved. Continue current care 05/30/17 12:22 Reports feeling more depressed today. Will increase Remeron to 15mg at HS 05/31/17 12:19 Mood improving. Slept well. Continue current care 06/01/17 21:21 More depressed today. Does not want to take Remeron. D/C Remeron and start Lexapro 10mg daily. Trazodone 50mg PO QHS
[2017-06-02] MEDS: ClonazePAM 1 MG TABLET PO SCH ×4 (03:20→20:43)
[2017-06-02] MEDS: MIRTAZAPINE 15 MG TABLET PO SCH (03:36)
--- NOTE | 2017-06-02 08:37 | Progress Note ---
- Date 06/02/17 Subjective: Carmina is without complaints this morning though seems a little anxious about starting a new pill today. She reports seeing "loving in my head" which she attributes to the Effexor and hopes that they will stop now that the Effexor has been dc'd. She notes feeling a little tired but nursing staff report that she slept about 8 hours last night. No SOA or chest pain. She coughed briefly during my visit but reports a tickle in her throat. No abdominal pain or GI c/ o. Appetite has been variable (refused lunch yesterday). Objective Vital signs: Temperature 98.6 F 06/01/17 22:34 Pulse Rate 99 06/01/17 22:34 Respiratory Rate 24 06/01/17 22:34 Blood Pressure 135/83 06/01/17 22:34 Pulse Oximetry 99 06/01/17 22:34 Height/Weight/BMI: Height 1.6 m Weight 78.4 kg Body Mass Index 30.6 - Constitutional Present: no acute distress, well nourished, well developed - Routine HEENT Exam Head: Present: normocephalic ENT: Present: mucous membranes dry - Routine Cardiovascular Exam Present: RRR, S1, S2 - Routine Abdominal Exam Present: soft, normoactive bowel sounds, non distended, non tender - Routine Extremities Exam Present: no edema - Routine Skin Exam Present: intact, dry, warm - Routine Neurological Exam Present: alert, oriented X3, normal speech - Routine Psychiatric Exam Present: normal affect (slightly anxious), normal thought process, cooperative Results - Labs CBC & Chem 7: 05/28/17 09:28 05/29/17 04:53 Assessment and Plan (1) Depression Current visit: Yes Status: Acute Assessment and Plan: IMPRESSION Anxiety Depression Hypernatremia- POA Chronic Nausea Tremor- Chronic DM- currently not taking meds HTN PLAN BMP on the showed that Na had decreased to normal level. BP under good control. No c/o nausea this am. Continue to hold metformin. Psych notes reviewed: D/C Remeron and start Lexapro 10mg daily; Trazodone 50mg PO QHS Hospital Course Summary Disclaimer: The visit summary below is not to be considered part of the above Progress Note. Hospital Course: 05/28/17 Impression Anxiety Depression Hypernatremia- POA Chronic Nausea Tremor- Chronic DM- currently not taking meds HTN Plan Agree with admission to [facility] for inpatient psychiatric evaluation and treatment Will speak with Dr. Lovell regarding information that patient has seen multiple psychiatrists in the [place] area and they've been admission, making numerous medication changes. PCP was informed that Effexor dose was being decreased, however, patient felt that it was being decreased to quickly and she was having symptoms. Will continue with PRN Zofran as needed for nausea. May consider schedule Reglan also. PCP feels that her nausea may be psychiatric in nature. Since last EGD was in 2013 at which time she was found to have esophagitis with chronic gastritis. It is likely that her persistent nausea is multifactorial including psychiatric versus gastritis. Will continue to follow. Obtain a hemoglobin A1c and as needed Accu-Cheks. Patient has been off her metformin for "several months". Monitor blood pressure Encourage PO intake in light of hypernatremia. Will encourage PO intake and recheck BMP tomorrow. If hypernatremia is persistent will consider IV hydration. Encourage patient to participate in unit activities and provide a safe environment Hospital services will continue to follow patient in consultation medical management. Existing comorbidities. At time of discharge, her primary care will return to Dr. Yesica [facility] 05/29/17 18:44 Slightly improved. Continue current care 05/30/17 12:22 Reports feeling more depressed today. Will increase Remeron to 15mg at HS 05/31/17 12:19 Mood improving. Slept well. Continue current care 06/01/17 21:21 More depressed today. Does not want to take Remeron. D/C Remeron and start Lexapro 10mg daily. Trazodone 50mg PO QHS 06/02/17 BMP on the showed that Na had decreased to normal level. BP under good control. No c/o nausea this am. Continue to hold metformin.
[2017-06-02] MEDS: ESCITALOPRAM 10 MG TABLET PO SCH (08:41)
--- NOTE | 2017-06-02 17:12 | Neuropsych Progress Note ---
[facility] Subjective Date: 06/02/17 - Sujective/Severity of Illness Medications: Clonazepam (Klonopin) 1 mg PO TID [facility] Last Admin: 06/02/17 15:54 Dose: 1 mg Escitalopram Oxalate (Lexapro) 10 mg PO DAILY [facility] Last Admin: 06/02/17 08:41 Dose: 10 mg Haloperidol (Haldol) 0.5 mg PO Q6H PRN PRN Reason: Extreme agitation Haloperidol Lactate (Haldol) 0.5 mg IM Q6H PRN PRN Reason: Extreme agitation Lorazepam (Ativan Inj) 0.5 mg IM Q6H PRN PRN Reason: Extreme agitation Lorazepam (Ativan) 0.5 mg PO Q6H PRN PRN Reason: Extreme agitation Ondansetron HCl (Zofran Po) 4 mg PO Q6HR PRN PRN Reason: Nausea Last Admin: 06/01/17 16:38 Dose: 4 mg Sodium Chloride (Iv Flush) 10 - 80 ml IVF PRN PRN PRN Reason: Flushing Trazodone HCl (Desyrel) 50 mg PO HS [facility] Last Admin: 06/01/17 20:13 Dose: 50 mg Subjective: Pt seen and chart examined. Nursing reports pt is doing well. Has been out more today. On face to face the pt states she is doing a little better. She states her mood is improved. Denies S/I. Tolerating Lexapro Start Time: 17:30 Stop Time: 17:45 Mental Status Exam Vitals: Last Vital Signs Temp 98.6 F 06/02/17 08:00 Pulse 82 06/02/17 08:00 Resp 16 06/02/17 08:00 BP 154/82 H 06/02/17 08:00 Pulse Ox 99 06/02/17 08:00 Height: 1.6 m Weight: 78.4 kg - Mental Status Exam Muscle Strength/Tone: Normal Dressing: Casual Grooming: Fair Attitude: Guarded Motor Activity: Retardation Eye Contact: Fair Speech: Slowed Volume: Soft Rhythm: Mumbled Orientation: Oriented X4 Mood: Depressed Rate of Thoughts: Delayed Thought Organization: Organized Associations: Intact Thought Content: Hopelessness, Helplessness, Worthlessness Perception/Psychotic: Perception Normal Language: Naming Intact Fund of Knowledge: Poor fund of knowledge Memory: Poor-immediate Suicidal Ideation: None Homicidal Ideation: None Insight: Poor Judgement: Poor Impulse Control: Poor - Laboratory Result Diagrams: 05/28/17 09:28 05/29/17 04:53 Assessment and Plan (1) Major depressive disorder with current active episode Qualifiers: Major depression recurrence: recurrent Major depression episode severity: severe Psychotic features: without psychotic features Qualified Code(s): F33.2 - Major depressive disorder, recurrent severe without psychotic features Current visit: Yes Status: Acute Hospital Course Summary Disclaimer: The visit summary below is not to be considered part of the above Progress Note. Hospital Course: 05/28/17 Impression Anxiety Depression Hypernatremia- POA Chronic Nausea Tremor- Chronic DM- currently not taking meds HTN Plan Agree with admission to [facility] for inpatient psychiatric evaluation and treatment Will speak with Dr. Lovell regarding information that patient has seen multiple psychiatrists in the [place] area and they've been admission, making numerous medication changes. PCP was informed that Effexor dose was being decreased, however, patient felt that it was being decreased to quickly and she was having symptoms. Will continue with PRN Zofran as needed for nausea. May consider schedule Reglan also. PCP feels that her nausea may be psychiatric in nature. Since last EGD was in 2013 at which time she was found to have esophagitis with chronic gastritis. It is likely that her persistent nausea is multifactorial including psychiatric versus gastritis. Will continue to follow. Obtain a hemoglobin A1c and as needed Accu-Cheks. Patient has been off her metformin for "several months". Monitor blood pressure Encourage PO intake in light of hypernatremia. Will encourage PO intake and recheck BMP tomorrow. If hypernatremia is persistent will consider IV hydration. Encourage patient to participate in unit activities and provide a safe environment Hospital services will continue to follow patient in consultation medical management. Existing comorbidities. At time of discharge, her primary care will return to Dr. Yesica [facility] 05/29/17 18:44 Slightly improved. Continue current care 05/30/17 12:22 Reports feeling more depressed today. Will increase Remeron to 15mg at HS 05/31/17 12:19 Mood improving. Slept well. Continue current care 06/01/17 21:21 More depressed today. Does not want to take Remeron. D/C Remeron and start Lexapro 10mg daily. Trazodone 50mg PO QHS 06/02/17 BMP on the showed that Na had decreased to normal level. BP under good control. No c/o nausea this am. Continue to hold metformin. 06/02/17 17:11 Feeling better. Continue current care
[2017-06-02] MEDS: TRAZODONE 50 MG TABLET PO SCH (20:43)
[2017-06-03] MEDS: ClonazePAM 1 MG TABLET PO SCH ×3 (09:14→20:06)
[2017-06-03] MEDS: ESCITALOPRAM 10 MG TABLET PO SCH (09:14)
--- NOTE | 2017-06-03 20:02 | Neuropsych Progress Note ---
[facility] Subjective Date: 06/03/17 - Sujective/Severity of Illness Medications: Clonazepam (Klonopin) 1 mg PO TID [facility] Last Admin: 06/03/17 15:15 Dose: 1 mg Escitalopram Oxalate (Lexapro) 10 mg PO DAILY [facility] Last Admin: 06/03/17 09:14 Dose: 10 mg Haloperidol (Haldol) 0.5 mg PO Q6H PRN PRN Reason: Extreme agitation Haloperidol Lactate (Haldol) 0.5 mg IM Q6H PRN PRN Reason: Extreme agitation Lorazepam (Ativan Inj) 0.5 mg IM Q6H PRN PRN Reason: Extreme agitation Lorazepam (Ativan) 0.5 mg PO Q6H PRN PRN Reason: Extreme agitation Ondansetron HCl (Zofran Po) 4 mg PO Q6HR PRN PRN Reason: Nausea Last Admin: 06/01/17 16:38 Dose: 4 mg Sodium Chloride (Iv Flush) 10 - 80 ml IVF PRN PRN PRN Reason: Flushing Trazodone HCl (Desyrel) 50 mg PO HS [facility] Last Admin: 06/02/17 20:43 Dose: 50 mg Subjective: Patient seen and chart reviewed. Case discussed with treatment team. On interview, patient is pleasant and cooperative. She reports an improved mood and feels she is tolerating Lexapro well. Patient denies any SI, HI or AVH. Patient denies any adverse side effects related to psychotropic medications. Nursing staff report patient has been less isolative, appears more engaged in treatment, is pleasant overall and adherent with her medications. Patient slept 8.75 hours overnight. VSS. Patient is eating well. Psychotropic PRNs required in the past 24 hours: none. Start Time: 15:00 Stop Time: 15:20 Mental Status Exam Vitals: Last Vital Signs Temp 98.0 F 06/03/17 16:00 Pulse 83 06/03/17 16:00 Resp 16 06/03/17 16:00 BP 118/67 06/03/17 16:00 Pulse Ox 98 06/03/17 16:00 Height: 1.6 m Weight: 78.4 kg - Mental Status Exam Muscle Strength/Tone: Normal Dressing: Casual Grooming: Fair Attitude: Cooperative Motor Activity: Retardation Eye Contact: Fair Speech: Slowed Volume: Soft Rhythm: Appropriate Rhythm Orientation: Oriented X4 Mood: Other ("better", affect continues to be restricted) Rate of Thoughts: Delayed Thought Organization: Organized Associations: Intact Thought Content: Worthlessness Perception/Psychotic: Perception Normal Language: Naming Intact Fund of Knowledge: Poor fund of knowledge Memory: Poor-immediate Suicidal Ideation: None Homicidal Ideation: None Insight: Poor Judgement: Poor Impulse Control: Fair - Laboratory Result Diagrams: 05/28/17 09:28 05/29/17 04:53 Assessment and Plan (1) Major depressive disorder with current active episode Qualifiers: Major depression recurrence: recurrent Major depression episode severity: severe Psychotic features: without psychotic features Qualified Code(s): F33.2 - Major depressive disorder, recurrent severe without psychotic features Current visit: Yes Status: Acute Hospital Course Summary Disclaimer: The visit summary below is not to be considered part of the above Progress Note. Hospital Course: 05/28/17 Impression Anxiety Depression Hypernatremia- POA Chronic Nausea Tremor- Chronic DM- currently not taking meds HTN Plan Agree with admission to [facility] for inpatient psychiatric evaluation and treatment Will speak with Dr. Lovell regarding information that patient has seen multiple psychiatrists in the [place] area and they've been admission, making numerous medication changes. PCP was informed that Effexor dose was being decreased, however, patient felt that it was being decreased to quickly and she was having symptoms. Will continue with PRN Zofran as needed for nausea. May consider schedule Reglan also. PCP feels that her nausea may be psychiatric in nature. Since last EGD was in 2013 at which time she was found to have esophagitis with chronic gastritis. It is likely that her persistent nausea is multifactorial including psychiatric versus gastritis. Will continue to follow. Obtain a hemoglobin A1c and as needed Accu-Cheks. Patient has been off her metformin for "several months". Monitor blood pressure Encourage PO intake in light of hypernatremia. Will encourage PO intake and recheck BMP tomorrow. If hypernatremia is persistent will consider IV hydration. Encourage patient to participate in unit activities and provide a safe environment Hospital services will continue to follow patient in consultation medical management. Existing comorbidities. At time of discharge, her primary care will return to Dr. Yesica [facility] 05/29/17 18:44 Slightly improved. Continue current care 05/30/17 12:22 Reports feeling more depressed today. Will increase Remeron to 15mg at HS 05/31/17 12:19 Mood improving. Slept well. Continue current care 06/01/17 21:21 More depressed today. Does not want to take Remeron. D/C Remeron and start Lexapro 10mg daily. Trazodone 50mg PO QHS 06/02/17 BMP on the showed that Na had decreased to normal level. BP under good control. No c/o nausea this am. Continue to hold metformin. 06/02/17 17:11 Feeling better. Continue current care 06/03/17 Psych: Patient improving on Lexapro - continue current care, monitor mood/behavior and response to treatment. Will discuss options for discharge planning and f/u with .
[2017-06-03] MEDS: TRAZODONE 50 MG TABLET PO SCH (20:06)
[2017-06-04] MEDS: ESCITALOPRAM 10 MG TABLET PO SCH (08:35)
[2017-06-04] MEDS: ClonazePAM 1 MG TABLET PO SCH ×3 (08:36→20:00)
--- NOTE | 2017-06-04 17:00 | Neuropsych Progress Note ---
[facility] Subjective Date: 06/04/17 - Sujective/Severity of Illness Medications: Clonazepam (Klonopin) 1 mg PO TID [facility] Last Admin: 06/04/17 15:23 Dose: 1 mg Escitalopram Oxalate (Lexapro) 10 mg PO DAILY [facility] Last Admin: 06/04/17 08:35 Dose: 10 mg Haloperidol (Haldol) 0.5 mg PO Q6H PRN PRN Reason: Extreme agitation Haloperidol Lactate (Haldol) 0.5 mg IM Q6H PRN PRN Reason: Extreme agitation Lorazepam (Ativan Inj) 0.5 mg IM Q6H PRN PRN Reason: Extreme agitation Lorazepam (Ativan) 0.5 mg PO Q6H PRN PRN Reason: Extreme agitation Ondansetron HCl (Zofran Po) 4 mg PO Q6HR PRN PRN Reason: Nausea Last Admin: 06/01/17 16:38 Dose: 4 mg Sodium Chloride (Iv Flush) 10 - 80 ml IVF PRN PRN PRN Reason: Flushing Trazodone HCl (Desyrel) 50 mg PO HS [facility] Last Admin: 06/03/17 20:06 Dose: 50 mg Subjective: Patient seen and chart reviewed. Case discussed with treatment team. On interview, patient is pleasant and cooperative. She reports an improved mood and feels she is tolerating Lexapro well. She feels she has some mild tremors d/ t withdrawing from Effexor. She states she is anxious about discharge because she will be facing a lot of stress and is not sure how she will manage it -- encouraged her to think about it, will discuss coping mechanisms tomorrow. Patient denies any SI, HI or AVH. Patient denies any adverse side effects related to psychotropic medications. Nursing staff report patient has been less isolative, appears more engaged in treatment, is pleasant overall and adherent with her medications. Patient slept well overnight. VSS. Patient is eating well. Psychotropic PRNs required in the past 24 hours: none. Start Time: 14:40 Stop Time: 15:00 Mental Status Exam Vitals: Last Vital Signs Temp 98.2 F 06/04/17 16:00 Pulse 76 06/04/17 16:00 Resp 18 06/04/17 16:00 BP 131/66 06/04/17 16:00 Pulse Ox 96 06/04/17 16:00 Height: 1.6 m Weight: 78.4 kg - Mental Status Exam Muscle Strength/Tone: Normal Dressing: Casual Grooming: Fair Attitude: Cooperative Motor Activity: Retardation Eye Contact: Fair Speech: Slowed Volume: Soft Rhythm: Appropriate Rhythm Orientation: Oriented X4 Mood: Other ("better", affect continues to be restricted) Rate of Thoughts: Delayed Thought Organization: Organized Associations: Intact Thought Content: Worthlessness, Other (anxiety about discharge, stress at home) Perception/Psychotic: Perception Normal Language: Naming Intact Fund of Knowledge: Poor fund of knowledge Memory: Poor-immediate Suicidal Ideation: Denies Homicidal Ideation: Denies Insight: Limited Judgement: Limited Impulse Control: Fair - Laboratory Result Diagrams: 05/28/17 09:28 05/29/17 04:53 Assessment and Plan (1) Major depressive disorder with current active episode Qualifiers: Major depression recurrence: recurrent Major depression episode severity: severe Psychotic features: without psychotic features Qualified Code(s): F33.2 - Major depressive disorder, recurrent severe without psychotic features Current visit: Yes Status: Acute Hospital Course Summary Disclaimer: The visit summary below is not to be considered part of the above Progress Note. Hospital Course: 05/28/17 Impression Anxiety Depression Hypernatremia- POA Chronic Nausea Tremor- Chronic DM- currently not taking meds HTN Plan Agree with admission to [facility] for inpatient psychiatric evaluation and treatment Will speak with Dr. Lovell regarding information that patient has seen multiple psychiatrists in the [place] area and they've been admission, making numerous medication changes. PCP was informed that Effexor dose was being decreased, however, patient felt that it was being decreased to quickly and she was having symptoms. Will continue with PRN Zofran as needed for nausea. May consider schedule Reglan also. PCP feels that her nausea may be psychiatric in nature. Since last EGD was in 2013 at which time she was found to have esophagitis with chronic gastritis. It is likely that her persistent nausea is multifactorial including psychiatric versus gastritis. Will continue to follow. Obtain a hemoglobin A1c and as needed Accu-Cheks. Patient has been off her metformin for "several months". Monitor blood pressure Encourage PO intake in light of hypernatremia. Will encourage PO intake and recheck BMP tomorrow. If hypernatremia is persistent will consider IV hydration. Encourage patient to participate in unit activities and provide a safe environment Hospital services will continue to follow patient in consultation medical management. Existing comorbidities. At time of discharge, her primary care will return to Dr. Yesica [facility] 05/29/17 18:44 Slightly improved. Continue current care 05/30/17 12:22 Reports feeling more depressed today. Will increase Remeron to 15mg at HS 05/31/17 12:19 Mood improving. Slept well. Continue current care 06/01/17 21:21 More depressed today. Does not want to take Remeron. D/C Remeron and start Lexapro 10mg daily. Trazodone 50mg PO QHS 06/02/17 BMP on the showed that Na had decreased to normal level. BP under good control. No c/o nausea this am. Continue to hold metformin. 06/02/17 17:11 Feeling better. Continue current care 06/03/17 Psych: Patient improving on Lexapro - continue current care, monitor mood/behavior and response to treatment. Will discuss options for discharge planning and f/u with . 06/04/17 Psych: Patient continues to improve but endorses anxiety over facing stress at home, cannot describe coping skills, etc. Encouraged her to work on this tomorrow and will continue current care in the meantime. Monitor for tremulousness as patient feels she is having withdrawals from Effexor.
[2017-06-04] MEDS: TRAZODONE 50 MG TABLET PO SCH (20:00)
[2017-06-05] MEDS: ESCITALOPRAM 10 MG TABLET PO SCH (08:12)
[2017-06-05] MEDS: ClonazePAM 1 MG TABLET PO SCH ×3 (08:12→20:23)
--- NOTE | 2017-06-05 09:41 | Progress Note ---
- Date 06/05/17 Subjective: Carmina is feeling anxious - not a new complaint for her. She thinks she might be having a rxn to Lexapro - feeling a bit weak. No chest pain. Denies abd pain or GI complaints - appetite has been stable. Notes she's been on steroid cream for "vaginal lichen something" since December, but hasn't been using it here and requests to start using it again. She denies any burning or symptoms associated with this. Objective Vital signs: Temperature 98.4 F 06/05/17 08:00 Pulse Rate 81 06/05/17 08:00 Respiratory Rate 18 06/05/17 08:00 Blood Pressure 144/82 H 06/05/17 08:00 Pulse Oximetry 97 06/05/17 08:00 Height/Weight/BMI: Height 1.6 m Weight 80.377 kg Body Mass Index 30.6 - Constitutional Present: no acute distress, well nourished, well developed, obese - Routine HEENT Exam Head: Present: normocephalic Eye: Absent: conjunctival icterus ENT: Present: mucous membranes moist - Routine Respiratory Exam Present: CTA bilaterally - Routine Cardiovascular Exam Present: RRR, S1, S2 - Routine Abdominal Exam Present: soft, normoactive bowel sounds, non distended, non tender - Routine Exam External: Present: swelling, vulvar erythema (with smaller areas of white discoloration), discharge (white thin vaginal discharge) - Routine Extremities Exam Present: no edema, pulses intact, normal capillary refill - Routine Musculoskeletal Exam Musculoskeletal: Present: moving extremities well - Routine Skin Exam Present: intact, dry, warm - Routine Neurological Exam Present: alert, oriented X3 - Routine Psychiatric Exam Present: normal affect, normal thought process, cooperative Results - Labs CBC & Chem 7: 05/28/17 09:28 05/29/17 04:53 Assessment and Plan (1) Depression Current visit: Yes Status: Acute Assessment and Plan: IMPRESSION Anxiety Depression Hypernatremia- POA Chronic Nausea Tremor- Chronic DM- currently not taking meds HTN vulvar lichen planus vag discharge suspect yeast PLAN restart home clobetasol at three times/week since sx are managed - add nystatin cream Give diflucan x1 for vag discharge suspect yeast (potential for QT prolongation with haldol though hasn't had any yet; & lexapro though she is on low-dose and initial EKG did not show prolonged QT) hx DM; metformin on hold - check BG fasting and 2 hours postprandial to see if metformin should be resumed. A1c was 5.9%. Dr. Neal's notes reviewed. Hospital Course Summary Disclaimer: The visit summary below is not to be considered part of the above Progress Note. Hospital Course: 05/28/17 Impression Anxiety Depression Hypernatremia- POA Chronic Nausea Tremor- Chronic DM- currently not taking meds HTN Plan Agree with admission to [facility] for inpatient psychiatric evaluation and treatment Will speak with Dr. Lovell regarding information that patient has seen multiple psychiatrists in the [place] area and they've been admission, making numerous medication changes. PCP was informed that Effexor dose was being decreased, however, patient felt that it was being decreased to quickly and she was having symptoms. Will continue with PRN Zofran as needed for nausea. May consider schedule Reglan also. PCP feels that her nausea may be psychiatric in nature. Since last EGD was in 2013 at which time she was found to have esophagitis with chronic gastritis. It is likely that her persistent nausea is multifactorial including psychiatric versus gastritis. Will continue to follow. Obtain a hemoglobin A1c and as needed Accu-Cheks. Patient has been off her metformin for "several months". Monitor blood pressure Encourage PO intake in light of hypernatremia. Will encourage PO intake and recheck BMP tomorrow. If hypernatremia is persistent will consider IV hydration. Encourage patient to participate in unit activities and provide a safe environment Hospital services will continue to follow patient in consultation medical management. Existing comorbidities. At time of discharge, her primary care will return to Dr. Yesica [facility] 05/29/17 18:44 Slightly improved. Continue current care 05/30/17 12:22 Reports feeling more depressed today. Will increase Remeron to 15mg at HS 05/31/17 12:19 Mood improving. Slept well. Continue current care 06/01/17 21:21 More depressed today. Does not want to take Remeron. D/C Remeron and start Lexapro 10mg daily. Trazodone 50mg PO QHS 06/02/17 BMP on the showed that Na had decreased to normal level. BP under good control. No c/o nausea this am. Continue to hold metformin. 06/02/17 17:11 Feeling better. Continue current care 06/03/17 Psych: Patient improving on Lexapro - continue current care, monitor mood/behavior and response to treatment. Will discuss options for discharge planning and f/u with . 06/04/17 Psych: Patient continues to improve but endorses anxiety over facing stress at home, cannot describe coping skills, etc. Encouraged her to work on this tomorrow and will continue current care in the meantime. Monitor for tremulousness as patient feels she is having withdrawals from Effexor. 06/05/17 restart home clobetasol at three times/week since sx are managed - add nystatin cream Give diflucan x1 for vag discharge suspect yeast (potential for QT prolongation with haldol though hasn't had any yet; & lexapro though she is on low-dose and initial EKG did not show prolonged QT) hx DM; metformin on hold - check BG fasting and 2 hours postprandial to see if metformin should be resumed. A1c was 5.9%.
[2017-06-05] MEDS ORDERED: FLUCONAZOLE 150 MG TABLET PO ONE (10:27)
[2017-06-05] MEDS: CLOBETASOL 0.05% CREAM 15gm TOP SCH ×2 (14:53→20:24)
--- NOTE | 2017-06-05 16:29 | Neuropsych Progress Note ---
[facility] Subjective Date: 06/05/17 - Sujective/Severity of Illness Medications: Clobetasol Propionate (Temovate Cream) 1 applic TOP MoWeFr [facility] Clonazepam (Klonopin) 1 mg PO TID [facility] Last Admin: 06/05/17 14:52 Dose: 1 mg Escitalopram Oxalate (Lexapro) 10 mg PO DAILY [facility] Last Admin: 06/05/17 08:12 Dose: 10 mg Haloperidol (Haldol) 0.5 mg PO Q6H PRN PRN Reason: Extreme agitation Haloperidol Lactate (Haldol) 0.5 mg IM Q6H PRN PRN Reason: Extreme agitation Lorazepam (Ativan Inj) 0.5 mg IM Q6H PRN PRN Reason: Extreme agitation Lorazepam (Ativan) 0.5 mg PO Q6H PRN PRN Reason: Extreme agitation Nystatin (Mycostatin) 1 applic TP TID [facility] Last Admin: 06/05/17 14:53 Dose: Not Given Nystatin (Mycostatin) 1 applic TP MoWeFr [facility] Last Admin: 06/05/17 14:53 Dose: Not Given Ondansetron HCl (Zofran Po) 4 mg PO Q6HR PRN PRN Reason: Nausea Last Admin: 06/01/17 16:38 Dose: 4 mg Sodium Chloride (Iv Flush) 10 - 80 ml IVF PRN PRN PRN Reason: Flushing Trazodone HCl (Desyrel) 50 mg PO HS [facility] Last Admin: 06/04/17 20:00 Dose: 50 mg Subjective: Patient seen and chart reviewed. Case discussed with treatment team. On interview, patient is pleasant and cooperative. She reports an improved mood and feels she is tolerating Lexapro well. She feels she has some mild tremors d/ t withdrawing from Effexor and she is observed having tremors in her head intermittently. [id number] normal and no intention or resting tremor noted in hands. She states she is anxious about discharge because she will be facing a lot of stress and is not sure how she will manage it -- encouraged her to think about coping skills. She feels she doesn't have any but is planning on working on this with SW this afternoon. Patient denies any SI, HI or AVH. Patient denies any adverse side effects related to psychotropic medications. Nursing staff report patient has been less isolative, appears more engaged in treatment, is pleasant overall and adherent with her medications. Patient slept well overnight. VSS. Patient is eating well. Psychotropic PRNs required in the past 24 hours: none. Start Time: 13:40 Stop Time: 14:00 Mental Status Exam Vitals: Last Vital Signs Temp 98.4 F 06/05/17 08:00 Pulse 81 06/05/17 08:00 Resp 18 06/05/17 08:00 BP 144/82 H 06/05/17 08:00 Pulse Ox 97 06/05/17 08:00 Height: 1.6 m Weight: 80.377 kg - Mental Status Exam Muscle Strength/Tone: Normal Dressing: Casual Grooming: Fair Attitude: Cooperative Motor Activity: Retardation Eye Contact: Fair Speech: Slowed Volume: Soft Rhythm: Appropriate Rhythm Orientation: Oriented X4 Mood: Other ("better", affect continues to be restricted) Rate of Thoughts: Delayed Thought Organization: Organized Associations: Intact Thought Content: Ruminations, Helplessness, Worthlessness, Other (anxiety about discharge, stress at home) Perception/Psychotic: Perception Normal Language: Naming Intact Fund of Knowledge: Poor fund of knowledge Memory: Poor-immediate Suicidal Ideation: Denies Homicidal Ideation: Denies Insight: Limited Judgement: Limited Impulse Control: Fair - Laboratory Result Diagrams: 05/28/17 09:28 05/29/17 04:53 Laboratory Results - last 24 hr 06/05/17 15:53 Glucometer 110 Assessment and Plan (1) Major depressive disorder with current active episode Qualifiers: Major depression recurrence: recurrent Major depression episode severity: severe Psychotic features: without psychotic features Qualified Code(s): F33.2 - Major depressive disorder, recurrent severe without psychotic features Current visit: Yes Status: Acute Hospital Course Summary Disclaimer: The visit summary below is not to be considered part of the above Progress Note. Hospital Course: 05/28/17 Impression Anxiety Depression Hypernatremia- POA Chronic Nausea Tremor- Chronic DM- currently not taking meds HTN Plan Agree with admission to [facility] for inpatient psychiatric evaluation and treatment Will speak with Dr. Lovell regarding information that patient has seen multiple psychiatrists in the [place] area and they've been admission, making numerous medication changes. PCP was informed that Effexor dose was being decreased, however, patient felt that it was being decreased to quickly and she was having symptoms. Will continue with PRN Zofran as needed for nausea. May consider schedule Reglan also. PCP feels that her nausea may be psychiatric in nature. Since last EGD was in 2013 at which time she was found to have esophagitis with chronic gastritis. It is likely that her persistent nausea is multifactorial including psychiatric versus gastritis. Will continue to follow. Obtain a hemoglobin A1c and as needed Accu-Cheks. Patient has been off her metformin for "several months". Monitor blood pressure Encourage PO intake in light of hypernatremia. Will encourage PO intake and recheck BMP tomorrow. If hypernatremia is persistent will consider IV hydration. Encourage patient to participate in unit activities and provide a safe environment Hospital services will continue to follow patient in consultation medical management. Existing comorbidities. At time of discharge, her primary care will return to Dr. Yesica [facility] 05/29/17 18:44 Slightly improved. Continue current care 05/30/17 12:22 Reports feeling more depressed today. Will increase Remeron to 15mg at HS 05/31/17 12:19 Mood improving. Slept well. Continue current care 06/01/17 21:21 More depressed today. Does not want to take Remeron. D/C Remeron and start Lexapro 10mg daily. Trazodone 50mg PO QHS 06/02/17 BMP on the showed that Na had decreased to normal level. BP under good control. No c/o nausea this am. Continue to hold metformin. 06/02/17 17:11 Feeling better. Continue current care 06/03/17 Psych: Patient improving on Lexapro - continue current care, monitor mood/behavior and response to treatment. Will discuss options for discharge planning and f/u with . 06/04/17 Psych: Patient continues to improve but endorses anxiety over facing stress at home, cannot describe coping skills, etc. Encouraged her to work on this tomorrow and will continue current care in the meantime. Monitor for tremulousness as patient feels she is having withdrawals from Effexor. 06/05/17 restart home clobetasol at three times/week since sx are managed - add nystatin cream Give diflucan x1 for vag discharge suspect yeast (potential for QT prolongation with haldol though hasn't had any yet; & lexapro though she is on low-dose and initial EKG did not show prolonged QT) hx DM; metformin on hold - check BG fasting and 2 hours postprandial to see if metformin should be resumed. A1c was 5.9%. 06/05/17 Psych: Continue current medication - patient to work on coping skills to use in times of distress with help of SW today
[2017-06-05] MEDS: TRAZODONE 50 MG TABLET PO SCH (20:23)
[2017-06-06] MEDS: ESCITALOPRAM 10 MG TABLET PO SCH (08:28)
[2017-06-06] MEDS: ClonazePAM 1 MG TABLET PO SCH ×3 (08:28→20:06)
--- NOTE | 2017-06-06 12:03 | Neuropsych Progress Note ---
Estela Subjective Date: 06/06/17 - Sujective/Severity of Illness Medications: Clobetasol Propionate (Temovate Cream) 1 applic TOP [facility] Last Admin: 06/05/17 20:24 Dose: 1 applic Clonazepam (Klonopin) 1 mg PO TID [facility] Last Admin: 06/06/17 08:28 Dose: 1 mg Escitalopram Oxalate (Lexapro) 10 mg PO DAILY [facility] Last Admin: 06/06/17 08:28 Dose: 10 mg Haloperidol (Haldol) 0.5 mg PO Q6H PRN PRN Reason: Extreme agitation Haloperidol Lactate (Haldol) 0.5 mg IM Q6H PRN PRN Reason: Extreme agitation Lorazepam (Ativan Inj) 0.5 mg IM Q6H PRN PRN Reason: Extreme agitation Lorazepam (Ativan) 0.5 mg PO Q6H PRN PRN Reason: Extreme agitation Nystatin (Mycostatin) 1 applic TP TID [facility] Last Admin: 06/06/17 08:29 Dose: Not Given Nystatin (Mycostatin) 1 applic TP [facility] Last Admin: 06/05/17 20:24 Dose: 1 applic Ondansetron HCl (Zofran Po) 4 mg PO Q6HR PRN PRN Reason: Nausea Last Admin: 06/01/17 16:38 Dose: 4 mg Sodium Chloride (Iv Flush) 10 - 80 ml IVF PRN PRN PRN Reason: Flushing Trazodone HCl (Desyrel) 50 mg PO HS [facility] Last Admin: 06/05/17 20:23 Dose: 50 mg Subjective: Pt seen and chart examined. Nursing reports pt doing a little better. Sleeping well and has a good appetite. Less isolative. On face to face the pt states she is feeling better. Mood and anxiety improved. Denies S/I. Tolerating meds. Start Time: 11:30 Stop Time: 11:45 Mental Status Exam Vitals: Last Vital Signs Temp 97.4 F 06/06/17 08:00 Pulse 85 06/06/17 08:00 Resp 18 06/06/17 08:00 BP 127/69 06/06/17 08:00 Pulse Ox 95 06/06/17 08:00 Height: 1.6 m Weight: 80.377 kg - Mental Status Exam Muscle Strength/Tone: Normal Dressing: Casual Grooming: Fair Attitude: Cooperative Motor Activity: Retardation Eye Contact: Fair Speech: Slowed Volume: Soft Rhythm: Appropriate Rhythm Orientation: Oriented X4 Mood: Other ("better", affect continues to be restricted) Rate of Thoughts: Delayed Thought Organization: Organized Associations: Intact Thought Content: Ruminations, Helplessness, Worthlessness, Other (anxiety about discharge, stress at home) Perception/Psychotic: Perception Normal Language: Naming Intact Fund of Knowledge: Poor fund of knowledge Memory: Poor-immediate Suicidal Ideation: Denies Homicidal Ideation: Denies Insight: Limited Judgement: Limited Impulse Control: Fair - Laboratory Result Diagrams: 05/28/17 09:28 05/29/17 04:53 Laboratory Results - last 24 hr 06/05/17 06/05/17 06/06/17 15:53 20:46 06:36 Glucometer 110 121 78 06/06/17 10:28 Glucometer 116 Assessment and Plan (1) Major depressive disorder with current active episode Qualifiers: Major depression recurrence: recurrent Major depression episode severity: severe Psychotic features: without psychotic features Qualified Code(s): F33.2 - Major depressive disorder, recurrent severe without psychotic features Current visit: Yes Status: Acute Hospital Course Summary Disclaimer: The visit summary below is not to be considered part of the above Progress Note. Hospital Course: 05/28/17 Impression Anxiety Depression Hypernatremia- POA Chronic Nausea Tremor- Chronic DM- currently not taking meds HTN Plan Agree with [facility] for inpatient psychiatric evaluation and treatment Will speak with Dr. Lovell regarding information that patient has seen multiple psychiatrists in the [place] area and they've been admission, making numerous medication changes. PCP was informed that Effexor dose was being decreased, however, patient felt that it was being decreased to quickly and she was having symptoms. Will continue with PRN Zofran as needed for nausea. May consider schedule Reglan also. PCP feels that her nausea may be psychiatric in nature. Since last EGD was in 2013 at which time she was found to have esophagitis with chronic gastritis. It is likely that her persistent nausea is multifactorial including psychiatric versus gastritis. Will continue to follow. Obtain a hemoglobin A1c and as needed Accu-Cheks. Patient has been off her metformin for "several months". Monitor blood pressure Encourage PO intake in light of hypernatremia. Will encourage PO intake and recheck BMP tomorrow. If hypernatremia is persistent will consider IV hydration. Encourage patient to participate in unit activities and provide a safe environment Hospital services will continue to follow patient in consultation medical management. Existing comorbidities. At time of discharge, her primary care will return to Dr. Yesica [facility] 05/29/17 18:44 Slightly improved. Continue current care 05/30/17 12:22 Reports feeling more depressed today. Will increase Remeron to 15mg at HS 05/31/17 12:19 Mood improving. Slept well. Continue current care 06/01/17 21:21 More depressed today. Does not want to take Remeron. D/C Remeron and start Lexapro 10mg daily. Trazodone 50mg PO QHS 06/02/17 BMP on the showed that Na had decreased to normal level. BP under good control. No c/o nausea this am. Continue to hold metformin. 06/02/17 17:11 Feeling better. Continue current care 06/03/17 Psych: Patient improving on Lexapro - continue current care, monitor mood/behavior and response to treatment. Will discuss options for discharge planning and f/u with . 06/04/17 Psych: Patient continues to improve but endorses anxiety over facing stress at home, cannot describe coping skills, etc. Encouraged her to work on this tomorrow and will continue current care in the meantime. Monitor for tremulousness as patient feels she is having withdrawals from Effexor. 06/05/17 restart home clobetasol at three times/week since sx are managed - add nystatin cream Give diflucan x1 for vag discharge suspect yeast (potential for QT prolongation with haldol though hasn't had any yet; & lexapro though she is on low-dose and initial EKG did not show prolonged QT) hx DM; metformin on hold - check BG fasting and 2 hours postprandial to see if metformin should be resumed. A1c was 5.9%. 06/05/17 Psych: Continue current medication - patient to work on coping skills to use in times of distress with help of SW today 06/06/17 12:02 Mood and anxiety improved today. Continue current care
[2017-06-06] MEDS: TRAZODONE 50 MG TABLET PO SCH (20:06)
[2017-06-07] MEDS: ClonazePAM 1 MG TABLET PO SCH ×3 (08:00→20:05)
[2017-06-07] MEDS: ESCITALOPRAM 10 MG TABLET PO SCH (08:00)
--- NOTE | 2017-06-07 11:15 | Neuropsych Progress Note ---
[facility] Subjective Date: 06/07/17 - Sujective/Severity of Illness Medications: Clobetasol Propionate (Temovate Cream) 1 applic TOP [facility] Last Admin: 06/05/17 20:24 Dose: 1 applic Clonazepam (Klonopin) 1 mg PO TID [facility] Last Admin: 06/07/17 08:00 Dose: 1 mg Escitalopram Oxalate (Lexapro) 10 mg PO DAILY [facility] Last Admin: 06/07/17 08:00 Dose: 10 mg Haloperidol (Haldol) 0.5 mg PO Q6H PRN PRN Reason: Extreme agitation Haloperidol Lactate (Haldol) 0.5 mg IM Q6H PRN PRN Reason: Extreme agitation Lorazepam (Ativan Inj) 0.5 mg IM Q6H PRN PRN Reason: Extreme agitation Lorazepam (Ativan) 0.5 mg PO Q6H PRN PRN Reason: Extreme agitation Nystatin (Mycostatin) 1 applic TP TID [facility] Last Admin: 06/07/17 08:00 Dose: 1 applic Nystatin (Mycostatin) 1 applic TP [facility] Last Admin: 06/05/17 20:24 Dose: 1 applic Ondansetron HCl (Zofran Po) 4 mg PO Q6HR PRN PRN Reason: Nausea Last Admin: 06/01/17 16:38 Dose: 4 mg Sodium Chloride (Iv Flush) 10 - 80 ml IVF PRN PRN PRN Reason: Flushing Trazodone HCl (Desyrel) 50 mg PO HS [facility] Last Admin: 06/06/17 20:06 Dose: 50 mg Subjective: Pt seen and chart examined. Nursing reports pt doing a little better. Sleeping well and has a good appetite. Less isolative. On face to face the pt states she continues to improve. Her mood and anxiety are improving. Denies S/ I or psychosis. Tolerating meds Start Time: 10:45 Stop Time: 11:00 Mental Status Exam Vitals: Last Vital Signs Temp 97.6 F 06/07/17 07:00 Pulse 96 06/07/17 07:00 Resp 18 06/07/17 07:00 BP 138/68 06/07/17 07:00 Pulse Ox 96 06/07/17 07:00 Height: 1.6 m Weight: 80.377 kg - Mental Status Exam Muscle Strength/Tone: Normal Dressing: Casual Grooming: Fair Attitude: Cooperative Motor Activity: Retardation Eye Contact: Fair Speech: Slowed Volume: Soft Rhythm: Appropriate Rhythm Orientation: Oriented X4 Mood: Other ("better", affect continues to be restricted) Rate of Thoughts: Delayed Thought Organization: Organized Associations: Intact Thought Content: Ruminations, Helplessness, Worthlessness, Other (anxiety about discharge, stress at home) Perception/Psychotic: Perception Normal Language: Naming Intact Fund of Knowledge: Poor fund of knowledge Memory: Poor-immediate Suicidal Ideation: Denies Homicidal Ideation: Denies Insight: Limited Judgement: Limited Impulse Control: Fair - Laboratory Result Diagrams: 05/28/17 09:28 05/29/17 04:53 Laboratory Results - last 24 hr 06/07/17 06:22 Glucometer 104 Assessment and Plan (1) Major depressive disorder with current active episode Qualifiers: Major depression recurrence: recurrent Major depression episode severity: severe Psychotic features: without psychotic features Qualified Code(s): F33.2 - Major depressive disorder, recurrent severe without psychotic features Current visit: Yes Status: Acute Hospital Course Summary Disclaimer: The visit summary below is not to be considered part of the above Progress Note. Hospital Course: 05/28/17 Impression Anxiety Depression Hypernatremia- POA Chronic Nausea Tremor- Chronic DM- currently not taking meds HTN Plan Agree with admission to [facility] for inpatient psychiatric evaluation and treatment Will speak with Dr. Lovell regarding information that patient has seen multiple psychiatrists in the [place] area and they've been admission, making numerous medication changes. PCP was informed that Effexor dose was being decreased, however, patient felt that it was being decreased to quickly and she was having symptoms. Will continue with PRN Zofran as needed for nausea. May consider schedule Reglan also. PCP feels that her nausea may be psychiatric in nature. Since last EGD was in 2013 at which time she was found to have esophagitis with chronic gastritis. It is likely that her persistent nausea is multifactorial including psychiatric versus gastritis. Will continue to follow. Obtain a hemoglobin A1c and as needed Accu-Cheks. Patient has been off her metformin for "several months". Monitor blood pressure Encourage PO intake in light of hypernatremia. Will encourage PO intake and recheck BMP tomorrow. If hypernatremia is persistent will consider IV hydration. Encourage patient to participate in unit activities and provide a safe environment Hospital services will continue to follow patient in consultation medical management. Existing comorbidities. At time of discharge, her primary care will return to Dr. Yesica [facility] 05/29/17 18:44 Slightly improved. Continue current care 05/30/17 12:22 Reports feeling more depressed today. Will increase Remeron to 15mg at HS 05/31/17 12:19 Mood improving. Slept well. Continue current care 06/01/17 21:21 More depressed today. Does not want to take Remeron. D/C Remeron and start Lexapro 10mg daily. Trazodone 50mg PO QHS 06/02/17 BMP on the showed that Na had decreased to normal level. BP under good control. No c/o nausea this am. Continue to hold metformin. 06/02/17 17:11 Feeling better. Continue current care 06/03/17 Psych: Patient improving on Lexapro - continue current care, monitor mood/behavior and response to treatment. Will discuss options for discharge planning and f/u with . 06/04/17 Psych: Patient continues to improve but endorses anxiety over facing stress at home, cannot describe coping skills, etc. Encouraged her to work on this tomorrow and will continue current care in the meantime. Monitor for tremulousness as patient feels she is having withdrawals from Effexor. 06/05/17 restart home clobetasol at three times/week since sx are managed - add nystatin cream Give diflucan x1 for vag discharge suspect yeast (potential for QT prolongation with haldol though hasn't had any yet; & lexapro though she is on low-dose and initial EKG did not show prolonged QT) hx DM; metformin on hold - check BG fasting and 2 hours postprandial to see if metformin should be resumed. A1c was 5.9%. 06/05/17 Psych: Continue current medication - patient to work on coping skills to use in times of distress with help of SW today 06/06/17 12:02 Mood and anxiety improved today. Continue current care 06/07/17 11:14 Continues to improve. Continue current care
[2017-06-07] MEDS: TRAZODONE 50 MG TABLET PO SCH (20:05)
[2017-06-08] MEDS: ClonazePAM 1 MG TABLET PO SCH ×3 (08:13→20:17)
[2017-06-08] MEDS: ESCITALOPRAM 10 MG TABLET PO SCH (08:13)
[2017-06-08] MEDS: CLOBETASOL 0.05% CREAM 15gm TOP SCH (12:46)
--- NOTE | 2017-06-08 18:26 | Neuropsych Progress Note ---
[facility] Subjective Date: 06/08/17 - Sujective/Severity of Illness Medications: Clobetasol Propionate (Temovate Cream) 1 applic TOP [facility] Last Admin: 06/08/17 12:46 Dose: 1 applic Clonazepam (Klonopin) 1 mg PO TID [facility] Last Admin: 06/08/17 15:28 Dose: 1 mg Escitalopram Oxalate (Lexapro) 10 mg PO DAILY [facility] Last Admin: 06/08/17 08:13 Dose: 10 mg Haloperidol (Haldol) 0.5 mg PO Q6H PRN PRN Reason: Extreme agitation Haloperidol Lactate (Haldol) 0.5 mg IM Q6H PRN PRN Reason: Extreme agitation Lorazepam (Ativan Inj) 0.5 mg IM Q6H PRN PRN Reason: Extreme agitation Lorazepam (Ativan) 0.5 mg PO Q6H PRN PRN Reason: Extreme agitation Nystatin (Mycostatin) 1 applic TP TID [facility] Last Admin: 06/08/17 15:28 Dose: 1 applic Nystatin (Mycostatin) 1 applic TP [facility] Last Admin: 06/08/17 12:45 Dose: 1 applic Ondansetron HCl (Zofran Po) 4 mg PO Q6HR PRN PRN Reason: Nausea Last Admin: 06/01/17 16:38 Dose: 4 mg Sodium Chloride (Iv Flush) 10 - 80 ml IVF PRN PRN PRN Reason: Flushing Trazodone HCl (Desyrel) 50 mg PO HS [facility] Last Admin: 06/07/17 20:05 Dose: 50 mg Subjective: Patient seen and chart reviewed. Case discussed with treatment team. On interview, patient smiles and is engaging - she feels she is ready to go back home. Has discussed coping skills with SW. Will need to be continued in therapy after discharge. Patient denies any SI, HI or AVH. Patient denies any adverse side effects related to psychotropic medications. Nursing staff report patient has been pleasant and cooperative, has not been isolating. Patient slept well hours overnight. VSS. Patient is eating well. Psychotropic PRNs required in the past 24 hours: none. Start Time: 13:40 Stop Time: 14:00 Mental Status Exam Vitals: Last Vital Signs Temp 98.2 F 06/08/17 15:00 Pulse 71 06/08/17 15:00 Resp 18 11/06/17 15:00 BP 129/68 06/08/17 15:00 Pulse Ox 96 06/08/17 15:00 Height: 1.6 m Weight: 80.377 kg - Mental Status Exam Muscle Strength/Tone: Normal Dressing: Casual Grooming: Good Attitude: Cooperative Motor Activity: Normal Eye Contact: Fair Speech: Slowed Volume: Soft Rhythm: Appropriate Rhythm Orientation: Oriented X4 Mood: Neutral Affect: Relaxed Rate of Thoughts: Delayed Thought Organization: Organized Associations: Intact Abstract Reasoning: Poor abstract reasoning Thought Content: Normal Perception/Psychotic: Perception Normal Language: Naming Intact Fund of Knowledge: Other (decreased from premorbid baseline) Memory: Poor-recent Suicidal Ideation: Denies Homicidal Ideation: Denies Insight: Fair Judgement: Fair Impulse Control: Good - Laboratory Result Diagrams: 05/28/17 09:28 05/29/17 04:53 Laboratory Results - last 24 hr 06/08/17 06:35 Glucometer 95 Assessment and Plan (1) Major depressive disorder with current active episode Qualifiers: Major depression recurrence: recurrent Major depression episode severity: severe Psychotic features: without psychotic features Qualified Code(s): F33.2 - Major depressive disorder, recurrent severe without psychotic features Current visit: Yes Status: Acute improved from admission Hospital Course Summary Disclaimer: The visit summary below is not to be considered part of the above Progress Note. Hospital Course: 05/28/17 Impression Anxiety Depression Hypernatremia- POA Chronic Nausea Tremor- Chronic DM- currently not taking meds HTN Plan Agree with admission to [facility] for inpatient psychiatric evaluation and treatment Will speak with Dr. Lovell regarding information that patient has seen multiple psychiatrists in the [place] area and they've been admission, making numerous medication changes. PCP was informed that Effexor dose was being decreased, however, patient felt that it was being decreased to quickly and she was having symptoms. Will continue with PRN Zofran as needed for nausea. May consider schedule Reglan also. PCP feels that her nausea may be psychiatric in nature. Since last EGD was in 2013 at which time she was found to have esophagitis with chronic gastritis. It is likely that her persistent nausea is multifactorial including psychiatric versus gastritis. Will continue to follow. Obtain a hemoglobin A1c and as needed Accu-Cheks. Patient has been off her metformin for "several months". Monitor blood pressure Encourage PO intake in light of hypernatremia. Will encourage PO intake and recheck BMP tomorrow. If hypernatremia is persistent will consider IV hydration. Encourage patient to participate in unit activities and provide a safe environment Hospital services will continue to follow patient in consultation medical management. Existing comorbidities. At time of discharge, her primary care will return to Dr. Yesica [facility] 05/29/17 18:44 Slightly improved. Continue current care 05/30/17 12:22 Reports feeling more depressed today. Will increase Remeron to 15mg at HS 05/31/17 12:19 Mood improving. Slept well. Continue current care 06/01/17 21:21 More depressed today. Does not want to take Remeron. D/C Remeron and start Lexapro 10mg daily. Trazodone 50mg PO QHS 06/02/17 BMP on the showed that Na had decreased to normal level. BP under good control. No c/o nausea this am. Continue to hold metformin. 06/02/17 17:11 Feeling better. Continue current care 06/03/17 Psych: Patient improving on Lexapro - continue current care, monitor mood/behavior and response to treatment. Will discuss options for discharge planning and f/u with . 06/04/17 Psych: Patient continues to improve but endorses anxiety over facing stress at home, cannot describe coping skills, etc. Encouraged her to work on this tomorrow and will continue current care in the meantime. Monitor for tremulousness as patient feels she is having withdrawals from Effexor. 06/05/17 restart home clobetasol at three times/week since sx are managed - add nystatin cream Give diflucan x1 for vag discharge suspect yeast (potential for QT prolongation with haldol though hasn't had any yet; & lexapro though she is on low-dose and initial EKG did not show prolonged QT) hx DM; metformin on hold - check BG fasting and 2 hours postprandial to see if metformin should be resumed. A1c was 5.9%. 06/05/17 Psych: Continue current medication - patient to work on coping skills to use in times of distress with help of SW today 06/06/17 12:02 Mood and anxiety improved today. Continue current care 06/07/17 11:14 Continues to improve. Continue current care 06/08/17 Psych: Patient doing well and feels she is ready for discharge. Will f/ u with outpatient provider for med management as well as individual therapy and continue to work on coping skills. Will call to discuss safety plan after discharge. Plan for discharge home with tomorrow.
[2017-06-08] MEDS: TRAZODONE 50 MG TABLET PO SCH (20:17)
[2017-06-09 00:10] VITALS: RESP 16
[2017-06-09] MEDS: ClonazePAM 1 MG TABLET PO SCH (08:16)
[2017-06-09] MEDS: ESCITALOPRAM 10 MG TABLET PO SCH (08:16)
[2017-06-09 09:49] VITALS: BP 137/67; PULSE 90; TEMP 98; O2SAT 97
== END 2017-06-09 10:35 | disposition home or self-care (01) | DRG 885 ==
LOC: ED 08:26 → GEN 10:55
PROVIDERS: ADMIT Psychiatry & Neurology Psychiatry; ATTEND Psychiatry & Neurology Psychiatry